=== PATIENT | female | born 1970 | race Hispanic/Latino ===

== ENCOUNTER 2018-09-07 18:02 | Emergency (ER) | payer OTHER ==
--- OUTSIDE RECORDS SUMMARY | 2018-09-07 18:05 | XMS REPORT | Clinical Summary ---
:1970 Author Organization [facility] Address [address] [place] [address] Care Team Providers Name Role Phone Augusta Manrique MD Primary Care Provider Unavailable Allergies Active Allergy Reactions Severity Noted Date Comments Amoxicillin Nausea Only, 10/13/2008 Pt states she is Swelling, Other (See Allergic due to other Comments) medications pt takes. Pt states she is Allergic due to other medications pt takes. Phenytoin Sodium 10/13/2008 Phenytoin Sodium Rash Low 08/11/2014 Raw skin Extended Raw skin Medications Medication Sig Dispensed Refills Start Date End Date Status triamcinolone APPLY TO 0 01/30/2016 Active (KENALOG) 0.1 % AFFECTED AREA cream BID escitalopram TK 1 AND 07/28 3 2017 Active (LEXAPRO) 20 MG TS PO PRN tablet ibuprofen Take 1 tablet 0 01/05/2018 Active (ADVIL,MOTRIN) 600 by mouth every MG tablet 6 (six) hours as needed. ranitidine (ZANTAC) TAKE 1 60 tablet 0 03/09/2018 Active 150 MG tablet TABLET(150 MG) BY MOUTH TWICE DAILY ALPRAZolam (XANAX) TK 1 T PO BID 2 02/11/2018 Active 0.25 MG tablet PRN cholecalciferol, Take 1 capsule 4 capsule 3 03/15/2018 Active vitamin D3, 50,000 (50,000 Units unit capsule total) by mouth once a week. LAMICTAL 100 mg Take 2 tablets 360 tablet 3 03/17/2018 Active tablet (200 mg total) by mouth 2 (two) times a day. ONFI 20 mg tablet TK 1 T PO D 90 tablet 1 03/22/2018 Active 9 zonisamide Take 3 540 capsule 3 05/24/2018 Active (ZONEGRAN) 100 MG capsules (300 9 capsule mg total) by mouth 2 (two) times a day. VIMPAT 200 mg TAKE 1 TABLET 60 tablet 5 08/18/2018 Active tablet BY MOUTH TWICE 9 DAILY risperiDONE Take 1 tablet 1 08/23/2018 Active (RisperDAL) 0.25 MG by mouth tablet nightly as needed. LAMICTAL 100 mg 1 tablet 2 3 12/29/2016 Discontinued tablet (two) times a 8 day. escitalopram Take 5 mg by 0 Discontinued (LEXAPRO) 5 MG mouth daily. 8 tablet zonisamide Take 3 540 capsule 3 01/22/2017 Discontinued (ZONEGRAN) 100 MG capsules (300 8 capsule mg total) by mouth 2 (two) times a day. lacosamide (VIMPAT) Take 1 tablet 60 tablet 5 08/13/2017 200 mg tablet (200 mg total) 8 by mouth 2 (two) times a day for 180 days. cloBAZam (ONFI) 20 Take 1 tablet 30 tablet 5 08/14/2017 mg tablet (20 mg total) 8 by mouth daily for 180 days. ranitidine (ZANTAC) Take 1 tablet 60 tablet 2 01/26/2018 Discontinued 150 MG tablet (150 mg total) 8 by mouth 2 (two) times a day. cholecalciferol, Take 1 capsule 16 capsule 0 01/28/2018 Discontinued vitamin D3, 50,000 (50,000 Units 8 unit capsule total) by mouth once a week. lacosamide (VIMPAT) Take 1 tablet 60 tablet 5 02/16/2018 Discontinued 200 mg tablet (200 mg total) 9 by mouth 2 (two) times a day for 184 days. 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 Encounters Date Type Specialty Care Team Description 09/03/2018 Orders Only Internal Medicine Burton, LLQ pain (Primary Dx) MD Augusta 09/01/2018 Office Visit Internal Medicine [facility], Encounter for general adult medical examination with abnormal findings (Primary Dx); MD Augusta LLQ pain; Acute left-sided low back pain, with sciatica presence unspecified; Seizure disorder (HCC); Weight gain; Hyperlipidemia, unspecified hyperlipidemia type; Diarrhea, unspecified type 09/01/2018 Orders Only Internal Medicine Augusta Manrique MD 08/18/2018 Refill Neurology Srinivasa Castano MD 05/24/2018 Refill Neurology Kev Guerrero RN 03/22/2018 Telephone Neurology Ladi Browne, LUIS F 03/17/2018 Lab Lab Srinivasa Castano MD 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 Office Visit Neurology Srinivasa Castano MD Cryptogenic partial complex epilepsy (Primary Dx) 03/16/2018 Refill Neurology Srinivasa Castano MD 03/15/2018 Office Visit Internal Medicine [place], Amparo fatigue ( Primary Dx); MD Augusta Vitamin D deficiency 03/09/2018 Refill Internal Medicine Augusta Manrique MD 02/19/2018 Refill Neurology Ladi Browne, LUIS F 02/18/2018 Refill Neurology Srinivasa Castano MD 02/17/2018 Refill Neurology Ladi Browne, LUIS F 02/15/2018 Refill Neurology Srinivasa Castano MD 01/28/2018 Orders Only Internal Medicine Augusta Manrique MD 01/26/2018 [facility], Encounter for general adult medical examination with abnormal findings (Primary Dx); MD Augusta Chest wall pain; Seizure disorder; BMI 31.0-31.9,adult; Depression, unspecified depression type; Vitamin D deficiency; Hyperlipidemia, unspecified hyperlipidemia type; Impaired fasting blood sugar 01/25/2018 Telephone Internal Medicine Augusta Manrique MD 01/01/2018 Telephone Internal Medicine Augusta Manrique MD 12/16/2017 Telephone Neurology Mali Alvarado RN 10/01/2017 Office Visit Neurology Srinivasa Castano MD 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 (Primary Dx) after 09/06/2017 Immunizations Name Dates Previously Given Next Due FLUZONE HIGH-DOSE PF 08/15/2012 Influenza Trivalent 05/18/2012, 05/26/2011, 05/29/2010, 05/22/2008, 05/12/2007, 05/27/2006, 05/23/2005 Influenza, Unspecified 05/18/2012, 05/26/2011, 05/29/2010, 05/22/2008, 05/12/2007, 05/27/2006, 05/23/2005 MMR 08/29/2014 Tdap 06/14/2014 Family History Medical History Relation Name Comments Colon cancer Father Dementia Father No Known Problems Mother Relation Name Status Comments Father Alive Mother Alive Social History Tobacco Use Types Packs/Day Years Used Date Never Smoker Smokeless Tobacco: Never Used Alcohol Use Drinks/Week oz/Week Comments No Sex Assigned at Date Recorded Not on file Job Start Date Occupation Industry Not on file Not on file Not on file Travel History Travel Start Travel End No recent travel history available. Last Filed Vital Signs Vital Sign Reading Time Taken Blood Pressure 119/86 09/01/2018 1:01 PM MACHINE SET UP OPERATOR Pulse 74 09/01/2018 1:01 PM MACHINE SET UP OPERATOR Temperature 36.7 C (98 F) 09/01/2018 1:01 PM MACHINE SET UP OPERATOR Respiratory Rate - - Oxygen Saturation 99% 09/01/2018 1:01 PM MACHINE SET UP OPERATOR Inhaled Oxygen Concentration - - Weight 84.8 kg (187 lb) 09/01/2018 1:01 PM MACHINE SET UP OPERATOR Height 157.5 cm (5' 2") 09/01/2018 1:01 PM MACHINE SET UP OPERATOR Body Mass Index 34.2 09/01/2018 1:01 PM MACHINE SET UP OPERATOR Plan of Treatment Date Type Specialty Care Team Description 09/22/2018 Office Visit Neurology Srinivasa Castano MD [address] [place] [address] Health Maintenance Due Date Last Done Comments INFLUENZA VACCINE 02/24/2018 08/15/2012, 05/18/2012, 05/18/2012, Additional history exists CERVICAL CANCER SCREENING 11/12/2020 11/12/2017 Implants Implanted Type Area Mystery Shopper Device Identifier Shelf Expiration Model / Date Serial / Lot Vagal Nerve Stimulator Procedures Procedure Name Priority Date/Time Associated Diagnosis Comments XR LUMBAR SPINE Routine 09/01/2018 1:45 LLQ pain Results for this COMPLETE 4+ VW PM MACHINE SET UP OPERATOR Acute left-sided low procedure are in back pain, with the results sciatica presence section. unspecified Seizure disorder (HCC) SEDIMENTATION RATE Routine 09/01/2018 1:32 LLQ pain Results for this PM MACHINE SET UP OPERATOR Acute left-sided low procedure are in back pain, with the results sciatica presence section. unspecified Seizure disorder (HCC) Weight gain C-REACTIVE PROTEIN Routine 09/01/2018 1:32 LLQ pain Results for this PM MACHINE SET UP OPERATOR Acute left-sided low procedure are in back pain, with the results sciatica presence section. unspecified Seizure disorder (HCC) Weight gain LIPID PANEL Routine 09/01/2018 1:32 Encounter for general Results for this PM MACHINE SET UP OPERATOR adult medical procedure are in examination with the results abnormal findings section. Hyperlipidemia, unspecified hyperlipidemia type THYROID STIMULATING Routine 09/01/2018 1:32 LLQ pain Results for this HORMONE PM MACHINE SET UP OPERATOR Acute left-sided low procedure are in back pain, with the results sciatica presence section. unspecified Seizure disorder (HCC) Encounter for general adult medical examination with abnormal findings Weight gain URINALYSIS, COMPLETE, Routine 09/01/2018 1:32 LLQ pain Results for this WITH REFLEX TO PM MACHINE SET UP OPERATOR Acute left-sided low procedure are in CULTURE back pain, with the results sciatica presence section. unspecified Seizure disorder (HCC) Encounter for general adult medical examination with abnormal findings Weight gain COMPREHENSIVE Routine 09/01/2018 1:32 LLQ pain Results for this METABOLIC PANEL PM MACHINE SET UP OPERATOR Acute left-sided low procedure are in back pain, with the results sciatica presence section. unspecified Seizure disorder (HCC) Encounter for general adult medical examination with abnormal findings Weight gain CBC WITH PLATELET AND Routine 09/01/2018 1:32 LLQ pain Results for this DIFFERENTIAL PM MACHINE SET UP OPERATOR Acute left-sided low procedure are in back pain, with the results sciatica presence section. unspecified Seizure disorder (HCC) Encounter for general adult medical examination with abnormal findings Weight gain URINE CULTURE Routine 09/01/2018 1:32 Results for this PM MACHINE SET UP OPERATOR procedure are in the results section. ZZESTIMATED GFR Routine 03/17/2018 1:54 Results for this PM CDT procedure are in the results section. HC COMPLETE BLD COUNT Routine 03/17/2018 1:54 Cryptogenic partial Results for this W/AUTO DIFF PM CDT complex epilepsy procedure are in the results section. COMPREHENSIVE Routine 03/17/2018 1:54 Cryptogenic partial Results for this METABOLIC PANEL PM CDT complex epilepsy procedure are in the results section. XR CHEST 2 VW Routine 01/26/2018 11:39 Chest wall pain Results for this AM CDT procedure are in the results section. ECG 12-LEAD Routine 01/26/2018 11:34 Chest wall pain Results for this AM CDT procedure are in the results section. VITAMIN D 25 HYDROXY Routine 01/26/2018 11:22 Vitamin D deficiency Results for this LEVEL AM CDT procedure are in the results section. URINALYSIS, COMPLETE, Routine 01/26/2018 11:22 Encounter for general Results for this WITH REFLEX TO AM CDT adult medical procedure are in CULTURE examination with the results abnormal findings section. THYROID STIMULATING Routine 01/26/2018 11:22 Depression, Results for this HORMONE AM CDT unspecified depression procedure are in type the results section. LIPID PANEL Routine 01/26/2018 11:22 Hyperlipidemia, Results for this AM CDT unspecified procedure are in hyperlipidemia type the results section. HEMOGLOBIN A1C Routine 01/26/2018 11:22 Impaired fasting blood Results for this AM CDT sugar procedure are in the results section. COMPREHENSIVE Routine 01/26/2018 11:22 Chest wall pain Results for this METABOLIC PANEL AM CDT procedure are in the results section. CBC WITH PLATELET AND Routine 01/26/2018 11:22 Chest wall pain Results for this DIFFERENTIAL AM CDT procedure are in the results section. after 09/06/2017 Results XR Lumbar Spine Complete 4+ Vw (09/01/2018 1:45 PM MACHINE SET UP OPERATOR) Narrative Performed At EXAMINATION:XR LUMBAR SPINE COMPLETE 4VW [facility] CLINICAL HISTORY:R10.32 Left lower quadrant pain, M54.5 Low back pain, pain COMPARISON:January 27, 2012 IMPRESSION: 5 views of lumbar spine were obtained. 5 nonrib-bearing lumbar type vertebrae. No pars defects on the oblique views. Lumbar spine alignment is within normal limits. Multilevel disc space narrowing and positive changes worst at L5-S1, progressed since last examination. No compression fractures or aggressive bony lesions. [id number] Procedure Note Hm Interface, Radiology Results Incoming - 09/01/2018 3:30 PM MACHINE SET UP OPERATOR EXAMINATION: XR LUMBAR SPINE COMPLETE 4 VW CLINICAL HISTORY: R10.32 Left lower quadrant pain, M54.5 Low back pain, pain COMPARISON: January 27, 2012 IMPRESSION: 5 views of lumbar spine were obtained. 5 nonrib-bearing lumbar type vertebrae. No pars defects on the oblique views. Lumbar spine alignment is within normal limits. Multilevel disc space narrowing and positive changes worst at L5-S1, progressed since last examination. No compression fractures or aggressive bony lesions. [id number] Performing Organization Address City/[facility] Cent[facility] Phone Number [facility] [address] [place] [address] URINALYSIS, COMPLETE, WITH REFLEX TO CULTURE (09/01/2018 1:32 PM MACHINE SET UP OPERATOR)Only the most recent of2 resultswithin the time period is included. Color, UA YELLOW YELLOW [facility] [place] Appearance CLEAR CLEAR [facility] [place] Specific gravity, urine 1.011 1.001 - 1.035 [facility] [place] pH, urine 5.5 5.0 - 8.0 [facility] [place] Glucose, urine NEGATIVE NEGATIVE [facility] [place] Bilirubin, UA NEGATIVE NEGATIVE [facility] [place] Ketones, UA NEGATIVE NEGATIVE [facility] [place] Occult blood, urine NEGATIVE NEGATIVE [facility] [place] Protein, UA NEGATIVE NEGATIVE [facility] [place] Nitrite, UA NEGATIVE NEGATIVE [facility] [place] Leukocyte esterase, UA NEGATIVE NEGATIVE [facility] [place] WBC, UA 6-10 (A) < OR=5 /HPF [facility] [place] RBC, UA 0-2 < OR=2 /HPF [facility] [place] Squamous epithelial 0-5 < OR=5 /HPF [facility] cells, UA [place] Bacteria, UA FEW (A) NONE SEEN /HPF [facility] [place] Hyaline casts, UA NONE SEEN NONE SEEN /LPF [facility] [place] Reflex CULTURE INDICATED - [facility] RESULTS TO FOLLOW [place] Resulting Agency Comment Performing Organization Information: Site ID: [facility] Name: [facility] Address: [address] [place] [phone] Director: Brooke Mondragon Performing Organization Address [facility] Centercova Phone Number [employer] [address] [address] Sedimentation rate (09/01/2018 1:32 PM MACHINE SET UP OPERATOR) Sedimentation rate 6 < OR=20 mm/h [facility] [place] Specimen Blood Resulting Agency Comment Performing Organization Information: Site ID: [facility] Name: [facility] Address: [address] [place] [phone] Director: Brooke Mondragon Performing Organization Address City/State/Zipcode Phone Number [facility] [address] [address] CBC with platelet and differential (09/01/2018 1:32 PM MACHINE SET UP OPERATOR)Only the most recent of3 resultswithin the time period is included. WBC 8.8 3.8 - 10.8 Thousand/uL [facility] RBC 4.05 3.80 - 5.10 Million/uL [facility] HGB 13.2 11.7 - 15.5 g/dL [facility] HCT 40.2 35.0 - 45.0 % [facility] [place] MCV 99.3 80.0 - 100.0 fL [facility] [place] MCH 32.6 27.0 - 33.0 pg [facility] [place] MCHC 32.8 32.0 - 36.0 g/dL [facility] [place] RDW 12.8 11.0 - 15.0 % [facility] [place] Platelet count 354 140 - 400 Thousand/uL [facility] MPV 10.2 7.5 - 12.5 fL [facility] [place] Neutrophils, absolute 6,213 1,500 - 7,800 cells/uL [facility] [place] Lymphocytes, absolute 1,478 850 - 3,900 cells/uL [facility] Monocytes, absolute 977 (H) 200 - 950 cells/uL [facility] Eosinophils, absolute 88 15 - 500 cells/uL [facility] [place] Basophils, absolute 44 0 - 200 cells/uL [facility] Neutrophils 70.6 % [facility] Lymphocytes 16.8 % [facility] Monocytes 11.1 % [facility] Eosinophils 1.0 % [facility] Basophils + RC 0.5 % [facility] Specimen Blood Resulting Agency Comment Performing Organization Information: Site ID: [id number] Name: [facility] Lab Address: [address] [place] [phone] Director: Brooke Mondragon Performing Organization Address City/State/Zipcode Phone Number [facility] [employer] [facility] [address] [address] Urine culture (09/01/2018 1:32 PM MACHINE SET UP OPERATOR) Urine culture SEE NOTE [facility] Comment: CULTURE, URINE, ROUTINE MICRO NUMBER:[id number] TEST STATUS: FINAL SPECIMEN SOURCE: URINE SPECIMEN QUALITY:ADEQUATE RESULT:Multiple organisms present, each less than 10,000 CFU/mL. These organisms, commonly found on external and internal genitalia, are considered to be colonizers. No further testing performed. Resulting Agency Comment Performing Organization Information: Site ID: [facility] Name: [facility] Address: [address] [place] [phone] Director: Brooke Mondragon Performing Organization Address [facility] Phone Number [facility] [place] [address] C-reactive protein (09/01/2018 1:32 PM MACHINE SET UP OPERATOR) CRP 3.3 <8.0 mg/L [facility] [place] Specimen Blood Resulting Agency Comment Performing Organization Information: Site ID: [facility] Name: [facility] Address: [address] [place] [phone] Director: Brooke Mondragon Performing Organization Address [facility] Phone Number [facility] [place] [address] Thyroid stimulating hormone (09/01/2018 1:32 PM MACHINE SET UP OPERATOR)Only the most recent of2 resultswithin the time period is included. TSH 3.36 mIU/L [facility] [place] Comment: Reference Range > or=20 Years0.40-4.50 Ranges First trimester0.26-2.66 Second trimester 0.55-2.73 Third trimester0.43-2.91 Specimen Blood Resulting Agency Comment Performing Organization Information: Site ID: [facility] Name: [facility] Address: [address] [place] [phone] Director: Brooke Mondragon Performing Organization Address [facility] Phone Number [place] [address] Lipid panel (09/01/2018 1:32 PM MACHINE SET UP OPERATOR)Only the most recent of2 resultswithin the time period is included. Cholesterol, total 188 <200 mg/dL [facility] [place] HDL cholesterol 65 >50 mg/dL [facility] [place] Triglycerides 81 <150 mg/dL [facility] [place] LDL cholesterol 106 (H) mg/dL (calc) [facility] calculated Comment: [place] Reference range: <100 Desirable range <100 mg/dL for primary prevention; <70 mg/dL for patients with CHD or diabetic patients with > or=2 CHD risk factors. LDL-C is now calculated using the Jonathan calculation, which is a validated novel method providing better accuracy than the Friedewald equation in the estimation of LDL-C. Troy HERNANDEZ et al. FRANKY. 2013;310(19): 2245-4017 (http://education.[employer]/faq/UDR622) Cholesterol/HDL ratio 2.9 <5.0 (calc) [facility] Non-HDL cholesterol 123 <130 mg/dL [facility] Comment: (calc) [place] For patients with diabetes plus 1 major ASCVD risk factor, treating to a non-HDL-C goal of <100 mg/dL (LDL-C of <70 mg/dL) is considered a therapeutic option. Specimen Blood Resulting Agency Comment Performing Organization Information: Site ID: [id number] Name: [facility] Address: [address] [place] [phone] Director: Brooke Mondragon Performing Organization Address City/State/Zipcode Phone Number [facility] [place] [phone] Comprehensive metabolic panel (09/01/2018 1:32 PM MACHINE SET UP OPERATOR)Only the most recent of3 resultswithin the time period is included. Glucose 58 (L) 65 - 99 mg/dL [facility] Comment: [place] Fasting reference interval BUN, whole blood 4 (L) 7 - 25 mg/dL [facility] Creatinine 0.67 0.50 - 1.10 mg/dL [facility] EGFR Non-Afr. Dominican 106 > OR=60 [facility] mL/min/1.73m2 [place] EGFR 123 > OR=60 [facility] mL/min/1.73m2 [place] BUN/creatinine ratio 6 6 - 22 (calc) [facility] Sodium 139 135 - 146 mmol/L [facility] Potassium 4.0 3.5 - 5.3 mmol/L [facility] [place] Chloride 102 98 - 110 mmol/L [facility] [place] CO2 33 (H) 20 - 32 mmol/L [facility] [place] Calcium 9.5 8.6 - 10.2 mg/dL [facility] Protein 6.6 6.1 - 8.1 g/dL [facility] Albumin, S 3.9 3.6 - 5.1 g/dL [facility] Globulin, total 2.7 1.9 - 3.7 g/dL [facility] (calc) [place] Albumin/globulin ratio 1.4 1.0 - 2.5 (calc) [facility] [place] Total bilirubin 0.5 0.2 - 1.2 mg/dL [facility] [place] Alkaline phosphatase 154 (H) 33 - 115 U/L [facility] AST 30 10 - 35 U/L [facility] ALT 30 (H) 6 - 29 U/L [facility] [place] Specimen Blood Resulting Agency Comment Performing Organization Information: Site ID: [id number] Name: [facility] Address: [address] [place] [phone] Director: Brooke Mondragon Performing Organization Address City/State/Zipcode Phone Number [facility] [address] [place] [phone] Estimated GFR (03/17/2018 1:54 PM CDT) GFR Non Af Amer >90 mL/min/1.73 m2 [facility] DEPARTMENT OF PATHOLOGY AND GENOMIC MEDICINE GFR Af Amer >90 mL/min/1.73 m2 [facility] DEPARTMENT OF Comment: PATHOLOGY AND GENOMIC Chronic kidney disease: <60 mL/min/1.73m2 MEDICINE Kidney failure: <15 mL/min/1.73m2 The estimated GFR is calculated from the IDMS-traceable Modification of Diet in Renal Disease Equation. The accuracy of the calculation is poor when the creatinine is normal. Calculated values >90 mL/min/1.73m2 are not reported. This equation has not been validated in children (<18 years), women, the elderly (>70 years), or ethnic groups other than Caucasians and Americans. Specimen Plasma specimen Performing Organization Address City/State/Zipcode Phone Number [facility] DEPARTMENT OF PATHOLOGY AND [address] [place] [id number] [facility] XR Chest 2 Vw (01/26/2018 11:39 AM CDT) Narrative Performed At EXAMINATION:XR CHEST 2 VW [facility] CLINICAL HISTORY:R07.89 Other chest pain, chest wall pain COMPARISON:December 16, 2015 IMPRESSION: Electronic generator is projected over the left chest. The heart and mediastinum are normal.The lung madera are clear. [facility]-[id number] Procedure Note Interface, Radiology Results Incoming - 01/26/2018 11:46 AM CDT EXAMINATION: XR CHEST 2 VW CLINICAL HISTORY: R07.89 Other chest pain, chest wall pain COMPARISON: December 16, 2015 IMPRESSION: Electronic generator is projected over the left chest. The heart and mediastinum are normal. The lung madera are clear. [facility]-[id number] Performing Organization Address [facility] Phone Number [facility] [address] [place] [address] ECG 12 lead (01/26/2018 11:34 AM CDT) Ventricular rate 62 [facility] Atrial rate 62 [facility] PA interval 162 [facility] QRSD interval 88 [facility] QT interval 440 [facility] QTC interval 446 [facility] P axis 1 49 [facility] QRS axis 1 56 [facility] T wave axis 60 [facility] EKG impression Normal sinus rhythm-Normal ECG-In automated [facility] comparison with ECG of 16-DEC-2015 16:36,-No significant change was found- Performing Organization Address [facility] Phone Number [facility] [address] [place] [address] Vitamin D 25 hydroxy level (01/26/2018 11:22 AM CDT) Vitamin D, 25-hydroxy 7 (L) 30 - 100 ng/mL [facility] Comment: [place] Vitamin D Status 25-OH Vitamin D: Deficiency:<20 ng/mL Insufficiency: 20 - 29 ng/mL Optimal: > or=30 ng/mL For 25-OH Vitamin D testing on patients on D2-supplementation and patients for whom quantitation of D2 and D3 fractions is required, the QuestAssureD(TM) 25-OH VIT D, (D2,D3), LC/MS/MS is recommended: order code 61373 (patients >2yrs). For more information on this test, go to: http://education.[employer]/faq/LOS281 (This link is being provided for informational/educational purposes only.) Specimen Blood Resulting Agency Comment Performing Organization Information: Site ID: [id number] Name: [facility] Address: [address] [place] [id number] Director: Brooke Mondragon Performing Organization Address [facility] Phone Number [facility] [place] [address] [place] [address] Hemoglobin A1c (01/26/2018 11:22 AM CDT) Hemoglobin A1C 5.1 <5.7 % of total Hgb [facility] [place] Comment: For the purpose of screening for the presence of diabetes: <5.7% Consistent with the absence of diabetes 5.7-6.4%Consistent with increased risk for diabetes (prediabetes) > or=6.5%Consistent with diabetes This assay result is consistent with a decreased risk of diabetes. Currently, no consensus exists regarding use of hemoglobin A1c for diagnosis of diabetes in children. According to [place] Diabetes Association (ADA) guidelines, hemoglobin A1c <7.0% represents optimal control in non- diabetic patients. Different metrics may apply to specific patient populations. Standards of Medical Care in Diabetes(ADA). Specimen Blood Resulting Agency Comment Performing Organization Information: Site ID: [id number] Name: [facility] Address: [address] [place] [id number] Director: Brooke Mondragon Performing Organization Address [facility] Phone Number [facility] [place] [address] [place] [address] after 09/06/2017 Insurance Payer Benefit Plan / Group Subscriber ID Type Phone Address MEDICARE MEDICARE PART A AND B xxxxxxxxxxx Medicare [place], [place] MEDICAID MEDICAID xxxxxxxxx Medicaid Advance Directives Patient has advance care planning documents, and code status on file. For more information, please contact:[place] [address] Code Status Date Activated Date Inactivated Comments Full Code 12/17/2015 2:54 PM 12/19/2015 11:02 PM Code Status decision reached by: Patient
--- OUTSIDE RECORDS SUMMARY | 2018-09-07 18:05 | XMS REPORT | Clinical Summary ---
:1970 Author Organization [facility] Address [address] [place] [address] Care Team Providers Name Role Phone Angelica Primary Care Provider Allergies Active Allergy Reactions Severity Noted Date Comments Amoxicillin 12/14/2016 Phenytoin Sodium Extended 12/14/2016 Medications Medication Sig Dispensed Refills Start Date End Date Status lamoTRIgine (LAMICTAL) Take 100 mg by 0 Active 100 MG mouth daily. tabletIndications: bipolar zonisamide (ZONEGRAN) Take 100 mg by 0 Active 100 MG mouth 4 (four) capsuleIndications: times daily. Partial Epilepsy Treatment Adjunct OLANZapine (ZYPREXA) Take 2.5 mg by 0 Active 2.5 MG mouth nightly 2 tabletIndications: tabs once daily . Bipolar Disorder in Remission escitalopram oxalate Take 10 mg by 0 Active (LEXAPRO) 10 MG mouth daily. tabletIndications: Depression associated with Bipolar Disorder lacosamide (VIMPAT) 100 Take 100 mg by 0 Active mg TabIndications: mouth 2 (two) Partial Epilepsy times daily. Treatment Adjunct clobazam (ONFI) 20 mg Take 20 mg by 0 Active TabIndications: mouth 2 (two) epilepsy times daily. Active Problems Problem Noted Date Seizure 05/22/2017 Encephalopathy 05/21/2017 Bipolar 1 disorder, depressed, severe 12/17/2016 Borderline personality disorder 12/17/2016 MSSA (methicillin susceptible Staphylococcus aureus) pneumonia 12/17/2016 Suicide attempt by multiple drug overdose 12/16/2016 Acute respiratory failure with hypoxemia 12/14/2016 Aspiration pneumonia 12/14/2016 Suicide attempt 12/14/2016 Social History Tobacco Use Types Packs/Day Years Used Date Never Assessed Sex Assigned at Date Recorded Not on file Job Start Date Occupation Industry Not on file Not on file Not on file Travel History Travel Start Travel End No recent travel history available. Last Filed Vital Signs Not on file Plan of Treatment Not on file Results Not on fileafter 09/06/2017 Insurance Payer Benefit Plan / Group Subscriber ID Type Phone Address MEDICARE MEDICARE A B xxxxxxxxxx Medicare MEDICAID MEDICAID [facility] xxxxxxxxx Medicaid Advance Directives For more information, please contact:[address] [phone] Code Status Date Activated Date Inactivated Comments Full Code 05/21/2017 1:02 AM 05/27/2017 5:45 PM This code status was determined by: Patient Full Code 12/15/2016 7:05 AM 12/24/2016 6:23 PM This code status was determined by: Other (please list)
--- OUTSIDE RECORDS SUMMARY | 2018-09-07 18:06 | XMS REPORT ---
:1970 Author Organization [facility] Address [address] [place] [address] [address] [place] [address] Care Team Providers Name Role Phone ELSYKIM WALTERYessi LEON Unavailable Unavailable CUATE BLAKELY Unavailable Unavailable Problems This patient has no known problems. Allergies, Adverse Reactions, Alerts This patient has no known allergies or adverse reactions. Medications This patient has no known medications. Results Test Description Test Time Test Comments Text Results Atomic Results Result Comments CORTISOL 2017-05-27 10:03:00 Test Item Value Reference Range Comments CORTISOL, TOTAL (BEAKER) (test dksj=5019) 2.0 ug/dL 3.7-19.4 [id number] 08:33:00 Test Item Value Reference Range Comments MAGNESIUM (BEAKER) (test wmsd=700) 1.6 mg/dL 1.6-2.6 Add onBASIC METABOLIC [id number] 06:36:00 Test Item Value Reference Range Comments SODIUM (BEAKER) (test 142 meq/L 136-145 felz=745) POTASSIUM (BEAKER) (test 3.6 meq/L 3.5-5.1 jtcv=506) CHLORIDE (BEAKER) (test 117 meq/L 98-107 zjmw=968) CO2 (BEAKER) (test 21 meq/L 22-29 ruvd=877) BLOOD UREA NITROGEN 3 mg/dL 7-21 (BEAKER) (test flnc=826) CREATININE (BEAKER) (test 0.65 mg/dL 0.57-1.25 tygm=337) GLUCOSE RANDOM (BEAKER) 90 mg/dL 70-105 (test wmfb=876) CALCIUM (BEAKER) (test 7.9 mg/dL 8.4-10.2 mobh=977) EGFR (BEAKER) (test 99 mL/min/1.73 sq m ESTIMATED GFR IS NOT gpjs=9260) ACCURATE CREATININE CLEARANCE IN PREDICTING GLOMERULAR FILTRATION RATE. ESTIMATED GFR IS NOT APPLICABLE FOR DIALYSIS PATIENTS. CBC W/PLT COUNT & AUTO [id number] 06:02:00 Test Item Value Reference Range Comments WHITE BLOOD CELL COUNT (BEAKER) (test nrwn=324) 6.1 K/ L 3.5-10.5 RED BLOOD CELL COUNT (BEAKER) (test fiia=756) 3.59 M/ L 3.93-5.22 HEMOGLOBIN (BEAKER) (test qzxd=264) 10.3 GM/DL 11.2-15.7 HEMATOCRIT (BEAKER) (test nooh=532) 34.0 % 34.1-44.9 MEAN CORPUSCULAR VOLUME (BEAKER) (test stph=525) 94.7 fL 79.4-94.8 MEAN CORPUSCULAR HEMOGLOBIN (BEAKER) (test 28.7 pg 25.6-32.2 vzue=174) MEAN CORPUSCULAR HEMOGLOBIN CONC (BEAKER) (test 30.3 GM/DL 32.2-35.5 lwck=140) RED CELL DISTRIBUTION WIDTH (BEAKER) (test 15.7 % 11.7-14.4 xmgh=400) PLATELET COUNT (BEAKER) (test pwnf=010) 305 K/CU MM 150-450 MEAN PLATELET VOLUME (BEAKER) (test vuph=904) 10.5 fL 9.4-12.3 NUCLEATED RED BLOOD CELLS (BEAKER) (test 0 /100 WBC 0-0 ehjs=959) NEUTROPHILS RELATIVE PERCENT (BEAKER) (test 50 % cieu=872) LYMPHOCYTES RELATIVE PERCENT (BEAKER) (test 33 % ynqg=500) MONOCYTES RELATIVE PERCENT (BEAKER) (test 12 % rouy=385) EOSINOPHILS RELATIVE PERCENT (BEAKER) (test 4 % dzpt=032) BASOPHILS RELATIVE PERCENT (BEAKER) (test 1 % wchy=823) NEUTROPHILS ABSOLUTE COUNT (BEAKER) (test 3.04 K/ L 1.56-6.13 ypkd=407) LYMPHOCYTES ABSOLUTE COUNT (BEAKER) (test 2.02 K/ L 1.18-3.74 jszc=402) MONOCYTES ABSOLUTE COUNT (BEAKER) (test 0.70 K/ L 0.24-0.36 rebn=488) EOSINOPHILS ABSOLUTE COUNT (BEAKER) (test 0.24 K/ L 0.04-0.36 dmjw=017) BASOPHILS ABSOLUTE COUNT (BEAKER) (test 0.05 K/ L 0.01-0.08 hvtw=522) IMMATURE GRANULOCYTES-RELATIVE PERCENT (BEAKER) 1 % 0-1 (test xhtg=5194) [id number] 21:10:00 Test Item Value Reference Range Comments POTASSIUM (BEAKER) (test pzsn=372) 3.1 meq/L 3.5-5.1 BLOOD [id number] 12:00:00 Test Item Value Reference Range Comments CULTURE (BEAKER) (test dymk=8196) No growth in 5 days CBC W/PLT COUNT & AUTO [id number] 09:04:00 Test Item Value Reference Range Comments WHITE BLOOD CELL COUNT (BEAKER) (test urnh=041) 6.8 K/ L 3.5-10.5 RED BLOOD CELL COUNT (BEAKER) (test whgb=953) 3.51 M/ L 3.93-5.22 HEMOGLOBIN (BEAKER) (test emvz=042) 10.1 GM/DL 11.2-15.7 HEMATOCRIT (BEAKER) (test ulcg=029) 33.0 % 34.1-44.9 MEAN CORPUSCULAR VOLUME (BEAKER) (test bkep=997) 94.0 fL 79.4-94.8 MEAN CORPUSCULAR HEMOGLOBIN (BEAKER) (test 28.8 pg 25.6-32.2 qcid=269) MEAN CORPUSCULAR HEMOGLOBIN CONC (BEAKER) (test 30.6 GM/DL 32.2-35.5 yqhd=992) RED CELL DISTRIBUTION WIDTH (BEAKER) (test 15.5 % 11.7-14.4 hwpp=796) PLATELET COUNT (BEAKER) (test ngwx=064) 307 K/CU MM 150-450 MEAN PLATELET VOLUME (BEAKER) (test kdav=281) 10.4 fL 9.4-12.3 NUCLEATED RED BLOOD CELLS (BEAKER) (test 0 /100 WBC 0-0 izvd=382) NEUTROPHILS RELATIVE PERCENT (BEAKER) (test 54 % ybux=218) LYMPHOCYTES RELATIVE PERCENT (BEAKER) (test 33 % xlrl=080) MONOCYTES RELATIVE PERCENT (BEAKER) (test 10 % pten=689) EOSINOPHILS RELATIVE PERCENT (BEAKER) (test 3 % bkkz=224) BASOPHILS RELATIVE PERCENT (BEAKER) (test 1 % bppe=672) NEUTROPHILS ABSOLUTE COUNT (BEAKER) (test 3.63 K/ L 1.56-6.13 zhzl=411) LYMPHOCYTES ABSOLUTE COUNT (BEAKER) (test 2.21 K/ L 1.18-3.74 rmmm=532) MONOCYTES ABSOLUTE COUNT (BEAKER) (test 0.64 K/ L 0.24-0.36 vvew=493) EOSINOPHILS ABSOLUTE COUNT (BEAKER) (test 0.22 K/ L 0.04-0.36 wqib=170) BASOPHILS ABSOLUTE COUNT (BEAKER) (test 0.05 K/ L 0.01-0.08 wbuk=205) IMMATURE GRANULOCYTES-RELATIVE PERCENT (BEAKER) 0 % 0-1 (test vgtc=7680) BASIC METABOLIC [id number] 06:35:00 Test Item Value Reference Range Comments SODIUM (BEAKER) (test 143 meq/L 136-145 eavp=801) POTASSIUM (BEAKER) (test 3.0 meq/L 3.5-5.1 btxx=625) CHLORIDE (BEAKER) (test 114 meq/L 98-107 isze=431) CO2 (BEAKER) (test 22 meq/L 22-29 itgv=811) BLOOD UREA NITROGEN 4 mg/dL 7-21 (BEAKER) (test xtrh=818) CREATININE (BEAKER) (test 0.57 mg/dL 0.57-1.25 bkye=759) GLUCOSE RANDOM (BEAKER) 106 mg/dL 70-105 (test ddvj=791) CALCIUM (BEAKER) (test 8.2 mg/dL 8.4-10.2 kwsr=237) EGFR (BEAKER) (test 115 mL/min/1.73 sq m ESTIMATED GFR IS NOT wqit=6416) ACCURATE CREATININE CLEARANCE IN PREDICTING GLOMERULAR FILTRATION RATE. ESTIMATED GFR IS NOT APPLICABLE FOR DIALYSIS PATIENTS. CORTISOL,60 [id number] 21:54:00 Test Item Value Reference Range Comments CORTISOL BASELINE NETWORKED (BEAKER) (test 5.5 mcg/dL ffuk=6562) CORTISOL 30 MINUTE NETWORKED (BEAKER) (test 17.0 mcg/dL wkhq=3459) CORTISOL, 60 MINUTE (BEAKER) (test cyuh=9906) 19.5 ug/dL ACTH STIMULATION TEST INTERPRETATION GUIDELINES(Synonyms: Cortrosyn Test, Cosyntropin or Corticotropin Stimulation Test)Adenocorticotropic hormone (ACTH) is a tropic hormone, made in the pituitary gland, which travels trhough the bloodstream and stimulates the cortex of the adrenal glands to release cortisol. Cortisol is a primary hormone, which aids the body's metabolism of fats, carbohydrates, and protein as well as sodium and potassium regulation.ACTH Stimulation Test: Exogenous administrationof biologically active ACTH stimulates the secretion of cortisol from the adrenal gland. This test is used to evaluate adrenal function by measuring cortisol levels at baseline and at 30 and 60 minutesafter the administration of 250 micrograms of cosyntropin (Cortrosyn). Patients who have received exogenous corticosteroids immediately prior to performing the ACTH Stimulation Test will often have elevated baseline cortisol levels, which may lead to erroneous interpretation of test results. The notable exception is with dexamethasone.Normal Response: An increase in cortisol after stimulation by ACTHis normal. Post-stimulation cortisol concentration should be greater than 20 mcg/dL or the rate of rise from baseline cortisol should be greater than or equal to 9 mcg/dL.Patients with sepsis or septicshock: According to a study by Pamela et al (FRANKY 2000,283( 8):1038-45), the ACTH Stimulation Test provides important prognostic information. This study defined 3 groups of patients with sepsis or septic shock : 1. Good Survival: Low basal cortisol (<or=34 mcg/dL) and high ACTH response (>9mcg/dL) 2. Intermediate Survival: Low basal cortisol (< 34 mcg/dL) and low response to ACTH (<or=9 mcg/dL) OR High basal cortisol (>34 mcg/dL) or high ACTH response (>9 mcg/dL) 3.Poor Survival: High basal cortisol (>34 mcg/dL) and low ACTH response (<or=9 mcg/dL) .Treatment of patients with relative adrenal dysfunction may be indicated based on test results and the clinical condition of the patient. Additional information, including treatment recommendations, is available in critically ill patients, approved by the Pharmacy, Nutrition, and Therapeutics Committee on 07/05/2004 and available through the Pharmacy Policy and Procedure Section on The Source.Do not run this test if systemic hydrocortisone, methylprednisolone, prednisolone or prednisone has been administered within the past 24 hours. Draw baseline cortisol level just prior to cosyntropin administration. Administer cosyntropin 0.25 mg diluted in 2-5 mL of normal saline slow IV Push over a period of 2 minutes. Draw serum cortisol level 30 minutes after cosyntropin administration. Draw serum cortisollevel 60 minutes after cosyntropin administration.CORTISOL,30 [id number] 21:47:00 Test Item Value Reference Range Comments CORTISOL BASELINE NETWORKED (BEAKER) (test 5.5 mcg/dL nicg=4620) CORTISOL, 30 MINUTE (BEAKER) (test tbjv=0070) 17.0 ug/dL ACTH STIMULATION TEST INTERPRETATION GUIDELINES(Synonyms: Cortrosyn Test, Cosyntropin or Corticotropin Stimulation Test)Adenocorticotropic hormone (ACTH) is a tropic hormone, made in the pituitary gland, which travels trhough the bloodstream and stimulates the cortex of the adrenal glands to release cortisol. Cortisol is a primary hormone, which aids the body's metabolism of fats, carbohydrates, and protein as well as sodium and potassium regulation.ACTH Stimulation Test: Exogenous administrationof biologically active ACTH stimulates the secretion of cortisol from the adrenal gland. This test is used to evaluate adrenal function by measuring cortisol levels at baseline and at 30 and 60 minutesafter the administration of 250 micrograms of cosyntropin (Cortrosyn). Patients who have received exogenous corticosteroids immediately prior to performing the ACTH Stimulation Test will often have elevated baseline cortisol levels, which may lead to erroneous interpretation of test results. The notable exception is with dexamethasone.Normal Response: An increase in cortisol after stimulation by ACTHis normal. Post-stimulation cortisol concentration should be greater than 20 mcg/dL or the rate of rise from baseline cortisol should be greater than or equal to 9 mcg/dL.Patients with sepsis or septicshock: According to a study by Pamela et al (FRANKY 2000,283( 8):1038-45), the ACTH Stimulation Test provides important prognostic information. This study defined 3 groups of patients with sepsis or septic shock : 1. Good Survival: Low basal cortisol (<or=34 mcg/dL) and high ACTH response (>9mcg/dL) 2. Intermediate Survival: Low basal cortisol (< 34 mcg/dL) and low response to ACTH (<or=9 mcg/dL) OR High basal cortisol (>34 mcg/dL) or high ACTH response (>9 mcg/dL) 3.Poor Survival: High basal cortisol (>34 mcg/dL) and low ACTH response (<or=9 mcg/dL) .Treatment of patients with relative adrenal dysfunction may be indicated based on test results and the clinical condition of the patient. Additional information, including treatment recommendations, is available in critically ill patients, approved by the Pharmacy, Nutrition, and Therapeutics Committee on 07/05/2004 and available through the Pharmacy Policy and Procedure Section on The Source.Do not run this test if systemic hydrocortisone, methylprednisolone, prednisolone or prednisone has been administered within the past 24 hours. Draw baseline cortisol level just prior to cosyntropin administration. Administer cosyntropin 0.25 mg diluted in 2-5 mL of normal saline slow IV Push over a period of 2 minutes. Draw serum cortisol level 30 minutes after cosyntropin administration. Draw serum cortisollevel 60 minutes after cosyntropin administration.[id number] 21:33:00 Test Item Value Reference Range Comments CORTISOL, TOTAL (BEAKER) (test tubg=1046) 16.2 ug/dL 3.7-19.4 30 [id number] 20:54:00 Test Item Value Reference Range Comments CORTISOL, TOTAL (BEAKER) (test fdeq=7151) 5.5 ug/dL 3.7-19.4 BaselineCORTISOL,[id number] 20:54:00 Test Item Value Reference Range Comments CORTISOL, BASELINE (BEAKER) (test xtdg=6326) 5.5 ug/dL ACTH STIMULATION TEST INTERPRETATION GUIDELINES(Synonyms: Cortrosyn Test, Cosyntropin or Corticotropin Stimulation Test)Adenocorticotropic hormone (ACTH) is a tropic hormone, made in the pituitary gland, which travels trhough the bloodstream and stimulates the cortex of the adrenal glands to release cortisol. Cortisol is a primary hormone, which aids the body's metabolism of fats, carbohydrates, and protein as well as sodium and potassium regulation.ACTH Stimulation Test: Exogenous administrationof biologically active ACTH stimulates the secretion of cortisol from the adrenal gland. This test is used to evaluate adrenal function by measuring cortisol levels at baseline and at 30 and 60 minutesafter the administration of 250 micrograms of cosyntropin (Cortrosyn). Patients who have received exogenous corticosteroids immediately prior to performing the ACTH Stimulation Test will often have elevated baseline cortisol levels, which may lead to erroneous interpretation of test results. The notable exception is with dexamethasone.Normal Response: An increase in cortisol after stimulation by ACTHis normal. Post-stimulation cortisol concentration should be greater than 20 mcg/dL or the rate of rise from baseline cortisol should be greater than or equal to 9 mcg/dL.Patients with sepsis or septicshock: According to a study by Pamela et al (FRANKY 2000,283( 8):1038-45), the ACTH Stimulation Test provides important prognostic information. This study defined 3 groups of patients with sepsis or septic shock : 1. Good Survival: Low basal cortisol (<or=34 mcg/dL) and high ACTH response (>9mcg/dL) 2. Intermediate Survival: Low basal cortisol (< 34 mcg/dL) and low response to ACTH (<or=9 mcg/dL) OR High basal cortisol (>34 mcg/dL) or high ACTH response (>9 mcg/dL) 3.Poor Survival: High basal cortisol (>34 mcg/dL) and low ACTH response (<or=9 mcg/dL) .Treatment of patients with relative adrenal dysfunction may be indicated based on test results and the clinical condition of the patient. Additional information, including treatment recommendations, is available in critically ill patients, approved by the Pharmacy, Nutrition, and Therapeutics Committee on 07/05/2004 and available through the Pharmacy Policy and Procedure Section on The Source.Do not run this test if systemic hydrocortisone, methylprednisolone, prednisolone or prednisone has been administered within the past 24 hours. Draw baseline cortisol level just prior to cosyntropin administration. Administer cosyntropin 0.25 mg diluted in 2-5 mL of normal saline slow IV Push over a period of 2 minutes. Draw serum cortisol level 30 minutes after cosyntropin administration. Draw serum cortisollevel 60 minutes after cosyntropin administration.PUL PERF IMAGING, [facility], [id number] 14:11: 00FINAL REPORT PROCEDURE: V/Q LUNG SCAN CPT CODE: 40843 INDICATION: Dyspnea, cardiac origin suspected PROTOCOL: 10.8 mCi of Xe-133 gas was administered by inhalation. Single breath and rebreathing/washout images were obtained in the anterior and the posterior projections. 4.3 mCi of Tc-99m MAA was then injected intravenously, and static perfusion images were obtained in multiple projections. FINDINGS: Ventilation : Initial tracer distribution is physiological. Washout proceeds normally. Perfusion: Tracer distribution is physiological. IMPRESSION : Normal Study 1. No evidence of pulmonary embolization. Signed: Tricia Parrish MDReport Verified Date/Time: 05/25/2017 14:11:28 Reading Location: [address] Reading Room TSH/FREE T4 IF [id number] 04:52:00 Test Item Value Reference Range Comments THYROID STIMULATING HORMONE (BEAKER) (test 2.92 uIU/mL 0.35-4.94 szcy=085) [id number] 04:19:00 Test Item Value Reference Range Comments CORTISOL, TOTAL (BEAKER) (test hcbp=3849) 1.2 ug/dL 3.7-19.4 BASIC METABOLIC [id number] 04:08:00 Test Item Value Reference Range Comments SODIUM (BEAKER) (test 140 meq/L 136-145 qiuk=486) POTASSIUM (BEAKER) (test 3.5 meq/L 3.5-5.1 tkiu=085) CHLORIDE (BEAKER) (test 115 meq/L 98-107 jczv=873) CO2 (BEAKER) (test 22 meq/L 22-29 xdtf=557) BLOOD UREA NITROGEN 3 mg/dL 7-21 (BEAKER) (test twjh=926) CREATININE (BEAKER) (test 0.57 mg/dL 0.57-1.25 xxtf=611) GLUCOSE RANDOM (BEAKER) 101 mg/dL 70-105 (test ehpj=900) CALCIUM (BEAKER) (test 7.9 mg/dL 8.4-10.2 tzzh=134) EGFR (BEAKER) (test 115 mL/min/1.73 sq m ESTIMATED GFR IS NOT uzwj=2566) ACCURATE CREATININE CLEARANCE IN PREDICTING GLOMERULAR FILTRATION RATE. ESTIMATED GFR IS NOT APPLICABLE FOR DIALYSIS PATIENTS. CBC W/PLT COUNT & AUTO [id number] 03:26:00 Test Item Value Reference Range Comments WHITE BLOOD CELL COUNT (BEAKER) (test jiya=872) 6.7 K/ L 3.5-10.5 RED BLOOD CELL COUNT (BEAKER) (test ycas=181) 3.44 M/ L 3.93-5.22 HEMOGLOBIN (BEAKER) (test mufs=353) 9.9 GM/DL 11.2-15.7 HEMATOCRIT (BEAKER) (test tsww=965) 32.5 % 34.1-44.9 MEAN CORPUSCULAR VOLUME (BEAKER) (test aaiw=823) 94.5 fL 79.4-94.8 MEAN CORPUSCULAR HEMOGLOBIN (BEAKER) (test 28.8 pg 25.6-32.2 iekx=902) MEAN CORPUSCULAR HEMOGLOBIN CONC (BEAKER) (test 30.5 GM/DL 32.2-35.5 jwkz=575) RED CELL DISTRIBUTION WIDTH (BEAKER) (test 15.1 % 11.7-14.4 vuqv=268) PLATELET COUNT (BEAKER) (test jlro=385) 298 K/CU MM 150-450 MEAN PLATELET VOLUME (BEAKER) (test vrzc=140) 10.0 fL 9.4-12.3 NUCLEATED RED BLOOD CELLS (BEAKER) (test 0 /100 WBC 0-0 lvcv=657) NEUTROPHILS RELATIVE PERCENT (BEAKER) (test 57 % lkda=736) LYMPHOCYTES RELATIVE PERCENT (BEAKER) (test 31 % fxsa=760) MONOCYTES RELATIVE PERCENT (BEAKER) (test 10 % kahz=512) EOSINOPHILS RELATIVE PERCENT (BEAKER) (test 2 % znas=451) BASOPHILS RELATIVE PERCENT (BEAKER) (test 1 % vgbb=017) NEUTROPHILS ABSOLUTE COUNT (BEAKER) (test 3.79 K/ L 1.56-6.13 vcev=694) LYMPHOCYTES ABSOLUTE COUNT (BEAKER) (test 2.04 K/ L 1.18-3.74 olvm=028) MONOCYTES ABSOLUTE COUNT (BEAKER) (test 0.65 K/ L 0.24-0.36 kqfc=947) EOSINOPHILS ABSOLUTE COUNT (BEAKER) (test 0.15 K/ L 0.04-0.36 vlqa=943) BASOPHILS ABSOLUTE COUNT (BEAKER) (test 0.04 K/ L 0.01-0.08 bnxt=065) IMMATURE GRANULOCYTES-RELATIVE PERCENT (BEAKER) 0 % 0-1 (test zacp=8628) SPUTUM CULTURE + GRAM [id number] 13:23:00 Test Item Value Reference Range Comments CULTURE (BEAKER) (test See comment meqp=2998) Clindamycin (test code=10) Erythromycin (test code=4) Linezolid (test code=40) Nitrofurantoin (test code=23) Oxacillin (test code=14) Rifampin (test code=43) Tetracycline (test code=2) Trimethoprim + Sulfamethoxazole (test code=47) Vancomycin (test code=13) CULTURE (BEAKER) (test <1+ Staphylococcus ckkr=8822) aureus GRAM STAIN RESULT (BEAKER) 2+ WBCs (test vbki=9412) GRAM STAIN RESULT (BEAKER) 0-5 epithelial cells (test pjxq=450640) GRAM STAIN RESULT (BEAKER) <1+ gram positive (test ieaa=484864) rods GRAM STAIN RESULT (BEAKER) <1+ gram positive (test auoq=751315) cocci in pairs 1+ Normal respiratory sarah presentRAD, CHEST, 1 VIEW, NON [id number] 09:19: 00Reason for exam:->dypneaShould this be performed at the bedside?-> YesFINAL REPORT Chest, one view. HISTORY: Dyspnea COMPARISON: 05/21/2017 IMPRESSION: Interval increase in interstitial edema and central venous congestion. Unchanged enlargement ofthe cardiomediastinal silhouette. Right-sided vascular catheter unchanged in position. No identifiable pneumothorax. No enlarging pleural effusion. Surgical clips in the right upper quadrant. No acute osseous abnormality. Signed: Gordon Harris MDReport Verified Date/Time: 05/24/2017 09:19:06 Reading Location: [facility] C013Y CT Body Reading Room BASIC METABOLIC [id number] 05:17:00 Test Item Value Reference Range Comments SODIUM (BEAKER) (test 138 meq/L 136-145 lbts=110) POTASSIUM (BEAKER) (test 3.8 meq/L 3.5-5.1 ydem=571) CHLORIDE (BEAKER) (test 111 meq/L 98-107 rtsf=389) CO2 (BEAKER) (test 20 meq/L 22-29 ueou=452) BLOOD UREA NITROGEN 5 mg/dL 7-21 (BEAKER) (test mgge=550) CREATININE (BEAKER) (test 0.58 mg/dL 0.57-1.25 fgjn=747) GLUCOSE RANDOM (BEAKER) 80 mg/dL 70-105 (test umuc=048) CALCIUM (BEAKER) (test 8.2 mg/dL 8.4-10.2 buir=904) EGFR (BEAKER) (test 113 mL/min/1.73 sq m ESTIMATED GFR IS NOT ocdv=2471) ACCURATE CREATININE CLEARANCE IN PREDICTING GLOMERULAR FILTRATION RATE. ESTIMATED GFR IS NOT APPLICABLE FOR DIALYSIS PATIENTS. SCREEN, [id number] 11:59:00 Test Item Value Reference Range Comments TEST URINE (BEAKER) (test bawd=142) Negative URINE [id number] 11:10:00 Test Item Value Reference Range Comments CULTURE (BEAKER) (test xutv=1413) No growth TROPONIN [id number] 03:35:00 Test Item Value Reference Range Comments TROPONIN I (BEAKER) (test fdhm=516) < ng/mL 0.00-0.03 Troponin I (TnI) levels must be interpreted in the context of the presenting symptoms and the clinical findings. Elevated TnI levels indicate myocardial damage, but are not specific for ischemic heart disease. Elevated TnI levels are seen in patients with other cardiac conditions (including myocarditis and congestive heart failure), and slight TnI elevations occur in patients with other conditions, including sepsis, renal failure, acidosis, acute neurological disease, and persistent tachyarrhythmia.BASIC METABOLIC [id number] 03:25:00 Test Item Value Reference Range Comments SODIUM (BEAKER) (test 138 meq/L 136-145 qpqa=819) POTASSIUM (BEAKER) (test 3.8 meq/L 3.5-5.1 djbh=800) CHLORIDE (BEAKER) (test 111 meq/L 98-107 hjhw=054) CO2 (BEAKER) (test 19 meq/L 22-29 xtvj=200) BLOOD UREA NITROGEN 5 mg/dL 7-21 (BEAKER) (test eqbo=478) CREATININE (BEAKER) (test 0.58 mg/dL 0.57-1.25 flez=690) GLUCOSE RANDOM (BEAKER) 94 mg/dL 70-105 (test xmga=326) CALCIUM (BEAKER) (test 8.1 mg/dL 8.4-10.2 hajr=658) EGFR (BEAKER) (test 113 mL/min/1.73 sq m ESTIMATED GFR IS NOT lakm=9308) ACCURATE CREATININE CLEARANCE IN PREDICTING GLOMERULAR FILTRATION RATE. ESTIMATED GFR IS NOT APPLICABLE FOR DIALYSIS PATIENTS. CBC W/PLT COUNT & AUTO [id number] 03:10:00 Test Item Value Reference Range Comments WHITE BLOOD CELL COUNT (BEAKER) (test iswr=573) 10.4 K/ L 3.5-10.5 RED BLOOD CELL COUNT (BEAKER) (test iqyr=073) 3.84 M/ L 3.93-5.22 HEMOGLOBIN (BEAKER) (test jraq=629) 10.9 GM/DL 11.2-15.7 HEMATOCRIT (BEAKER) (test oogs=697) 36.5 % 34.1-44.9 MEAN CORPUSCULAR VOLUME (BEAKER) (test ebyw=064) 95.1 fL 79.4-94.8 MEAN CORPUSCULAR HEMOGLOBIN (BEAKER) (test 28.4 pg 25.6-32.2 gwdt=460) MEAN CORPUSCULAR HEMOGLOBIN CONC (BEAKER) (test 29.9 GM/DL 32.2-35.5 vqce=469) RED CELL DISTRIBUTION WIDTH (BEAKER) (test 14.7 % 11.7-14.4 orni=605) PLATELET COUNT (BEAKER) (test bdic=556) 312 K/CU MM 150-450 MEAN PLATELET VOLUME (BEAKER) (test kwsg=973) 10.3 fL 9.4-12.3 NUCLEATED RED BLOOD CELLS (BEAKER) (test 0 /100 WBC 0-0 fsrg=916) NEUTROPHILS RELATIVE PERCENT (BEAKER) (test 81 % qoot=775) LYMPHOCYTES RELATIVE PERCENT (BEAKER) (test 11 % hddy=311) MONOCYTES RELATIVE PERCENT (BEAKER) (test 7 % hsvj=253) EOSINOPHILS RELATIVE PERCENT (BEAKER) (test 1 % wokk=138) BASOPHILS RELATIVE PERCENT (BEAKER) (test 0 % jnan=062) NEUTROPHILS ABSOLUTE COUNT (BEAKER) (test 8.33 K/ L 1.56-6.13 pfrj=639) LYMPHOCYTES ABSOLUTE COUNT (BEAKER) (test 1.10 K/ L 1.18-3.74 uocx=708) MONOCYTES ABSOLUTE COUNT (BEAKER) (test 0.76 K/ L 0.24-0.36 jbpp=261) EOSINOPHILS ABSOLUTE COUNT (BEAKER) (test 0.08 K/ L 0.04-0.36 ccgv=313) BASOPHILS ABSOLUTE COUNT (BEAKER) (test 0.04 K/ L 0.01-0.08 yzcq=487) IMMATURE GRANULOCYTES-RELATIVE PERCENT (BEAKER) 0 % 0-1 (test chkk=2448) TROPONIN [id number] 00:15:00 Test Item Value Reference Range Comments TROPONIN I (BEAKER) (test vnem=225) < ng/mL 0.00-0.03 Troponin I (TnI) levels must be interpreted in the context of the presenting symptoms and the clinical findings. Elevated TnI levels indicate myocardial damage, but are not specific for ischemic heart disease. Elevated TnI levels are seen in patients with other cardiac conditions (including myocarditis and congestive heart failure), and slight TnI elevations occur in patients with other conditions, including sepsis, renal failure, acidosis, acute neurological disease, and persistent tachyarrhythmia.TROPONIN [id number] 18:29:00 Test Item Value Reference Range Comments TROPONIN I (BEAKER) (test rivt=333) < ng/mL 0.00-0.03 Troponin I (TnI) levels must be interpreted in the context of the presenting symptoms and the clinical findings. Elevated TnI levels indicate myocardial damage, but are not specific for ischemic heart disease. Elevated TnI levels are seen in patients with other cardiac conditions (including myocarditis and congestive heart failure), and slight TnI elevations occur in patients with other conditions, including sepsis, renal failure, acidosis, acute neurological disease, and persistent tachyarrhythmia.[id number] 18:14:00 Test Item Value Reference Range Comments D-DIMER QUANTITATIVE (BEAKER) (test zmiu=235) 0.69 MG/L FEU <0.50 Intended Use: The D-Dimer Assay can be used to aid in the diagnosis of Deep Vein Thrombosis (DVT) and Pulmonary Embolism Disease (PED).In patients with low pre-test probability, various studies concerning STA Liatest D-dimer test have reported that with a cutoff value of 0.50 MG/L FEU, the Negative Predictive Value (NPV) regarding the exclusion of thrombosis is within 95-100% range.BASIC METABOLIC [id number] 03:16:00 Test Item Value Reference Range Comments SODIUM (BEAKER) (test 141 meq/L 136-145 ccio=156) POTASSIUM (BEAKER) (test 3.6 meq/L 3.5-5.1 dxog=625) CHLORIDE (BEAKER) (test 114 meq/L 98-107 xqlj=631) CO2 (BEAKER) (test 21 meq/L 22-29 zsif=324) BLOOD UREA NITROGEN 4 mg/dL 7-21 (BEAKER) (test dhjc=347) CREATININE (BEAKER) (test 0.58 mg/dL 0.57-1.25 pish=117) GLUCOSE RANDOM (BEAKER) 92 mg/dL 70-105 (test nqbg=699) CALCIUM (BEAKER) (test 8.1 mg/dL 8.4-10.2 qous=077) EGFR (BEAKER) (test 113 mL/min/1.73 sq m ESTIMATED GFR IS NOT ebdq=7319) ACCURATE CREATININE CLEARANCE IN PREDICTING GLOMERULAR FILTRATION RATE. ESTIMATED GFR IS NOT APPLICABLE FOR DIALYSIS PATIENTS. VANCOMYCIN LEVEL, [id number] 03:11:00 Test Item Value Reference Range Comments VANCOMYCIN TROUGH (BEAKER) (test vvbw=492) 14.6 ug/mL 10.0-20.0 Draw 30 min prior to scheduled dose, HOLD if level > 20 mcg/mL, inform .CBC W/PLT COUNT & AUTO [id number] 03:02:00 Test Item Value Reference Range Comments WHITE BLOOD CELL COUNT (BEAKER) (test uchi=771) 12.2 K/ L 3.5-10.5 RED BLOOD CELL COUNT (BEAKER) (test qtqw=464) 3.81 M/ L 3.93-5.22 HEMOGLOBIN (BEAKER) (test xbaf=125) 11.0 GM/DL 11.2-15.7 HEMATOCRIT (BEAKER) (test mklj=607) 36.0 % 34.1-44.9 MEAN CORPUSCULAR VOLUME (BEAKER) (test qhag=481) 94.5 fL 79.4-94.8 MEAN CORPUSCULAR HEMOGLOBIN (BEAKER) (test 28.9 pg 25.6-32.2 xsph=860) MEAN CORPUSCULAR HEMOGLOBIN CONC (BEAKER) (test 30.6 GM/DL 32.2-35.5 wmxl=438) RED CELL DISTRIBUTION WIDTH (BEAKER) (test 14.7 % 11.7-14.4 yyyi=819) PLATELET COUNT (BEAKER) (test sotk=054) 303 K/CU MM 150-450 MEAN PLATELET VOLUME (BEAKER) (test zhdu=936) 10.3 fL 9.4-12.3 NUCLEATED RED BLOOD CELLS (BEAKER) (test 0 /100 WBC 0-0 dhpw=664) NEUTROPHILS RELATIVE PERCENT (BEAKER) (test 71 % wcen=255) LYMPHOCYTES RELATIVE PERCENT (BEAKER) (test 17 % ullz=149) MONOCYTES RELATIVE PERCENT (BEAKER) (test 10 % gfug=572) EOSINOPHILS RELATIVE PERCENT (BEAKER) (test 1 % ysru=769) BASOPHILS RELATIVE PERCENT (BEAKER) (test 0 % zdct=239) NEUTROPHILS ABSOLUTE COUNT (BEAKER) (test 8.62 K/ L 1.56-6.13 wqvw=262) LYMPHOCYTES ABSOLUTE COUNT (BEAKER) (test 2.09 K/ L 1.18-3.74 obta=733) MONOCYTES ABSOLUTE COUNT (BEAKER) (test 1.27 K/ L 0.24-0.36 hqai=406) EOSINOPHILS ABSOLUTE COUNT (BEAKER) (test 0.14 K/ L 0.04-0.36 oocq=385) BASOPHILS ABSOLUTE COUNT (BEAKER) (test 0.05 K/ L 0.01-0.08 ktwe=009) IMMATURE GRANULOCYTES-RELATIVE PERCENT (BEAKER) 0 % 0-1 (test qxqy=0546) RAD, ABDOMEN/KUB, 1 VIEW [id number] 15:59:00Reason for exam:->corpak placement Should this be performed at the bedside?->YesFINAL REPORT TECHNIQUE: Supine radiograph of the abdomen dated 05/21/2017. HISTORY: Corpak placement. COMPARISON: Abdominal radiograph performed earlier the same day. IMPRESSION:Enteric tube has been advanced and the tip is either in the first portion of the duodenum or in the gastric antrum/pylorus. No air- filled, dilated loops of bowel to suggest obstruction. No free intraperitoneal air. No abnormal soft tissue mass or calcification. Surgical clips are seen in the right upper quadrant. Bones are unremarkable. Signed: [facility] Verified Date/Time: 05/21/2017 15:59:07 Reading Location: [facility] Radiology Reading Room EEG AWAKE AND [id number] 15:48:00DATE OF EE2016DATE OF REPORT: [id number]: [id number]: [id number] time: 14:42Stop time: 15:04ICD-10: R56.9 CPT Code: 45073 HISTORY: 46 y.o. female with history of MDD, epilepsy, and multiple suicide attempt history who is transferred from [facility] for concerns of AMS and potentially status epilepticus.MEDICATIONS THAT COULD AFFECT EEG: Onfi, Vimpat, lamotrigine, zonogram TECHNICAL SUMMARY:This is a digital EEG recorded with 32 input channels on a Wi-Chi system and then reviewed with bipolar and referential montages using the modified combinatorial system nomenclature. DESCRIPTION OF RECORD: During the maximally stimulated state, a sporadic, moderate amplitude occipital dominant rhythm of 7 Hz activity is evident bilaterally. More anteriorly, similar as well as faster frequency distributions occur. The awake background is further admixed with large amounts of 5-7 Hz theta activitiesHV: Hyperventilation was not performed.PHOTIC STIMULATION: Photic Stimulation was not done. IMPRESSION: Abnormal EEG due to 1- Continuous , generalized , theta slowing, reactiveCLINICAL CORRELATION: Diffuse slowing as in this record supports an underlying mild to moderate encephalopathy. An EEG without epileptiform discharges does not exclude the possibility of epilepsy. If the clinical suspicion of epilepsy remains, consider additional EEG recordings. Compared with EEG on 11/2016 this recording show no significant changes. Alberto Herrmann MDNeurophysiology Fellow PGY5 Attending note:I personally reviewed this EEG in its entirety and I agree with the details of this report. Annia Markham MD , PhDEpilepsy Attending RAD, ABDOMEN/KUB, 1 VIEW [id number] 15:19:00Reason for exam:->corpak placement Should this be performed at the bedside?-> YesFINAL REPORT AP abdomen, two images HISTORY: Feeding tube COMPARISON: None IMPRESSION:Feeding tube present. Tip projects near distal stomach, not transpyloric. Bowel gas pattern grossly nonobstructive. Intact skeleton. Signed: Elba rFeedman Verified Date/Time: 05/21/2017 15:19 :19 Reading Location: [facility] Reading Room POCT-GLUCOSE [id number] 13:37:00 Test Item Value Reference Range Comments POC-GLUCOSE METER (BEAKER) 114 mg/dL 70-110 TESTED AT [facility] [address] [facility] (test wkou=7441) [facility] [address] [address], BRAIN, WITHOUT [id number] 13:12:00FINAL REPORT CT head without contrast 05/21/2017 1:10 PM CLINICAL HISTORY: Decreased alertnessR/O acute stroke TECHNIQUE: Axial noncontrast CT images through the head were obtained. This examination was performed according to our departmental dose optimization program, which includes automated exposure control, adjustment of the mA and/or kV according to patient size, and/or use of iterated reconstruction technique. COMPARISON: None available FINDINGS: There is no hemorrhage, extra-axial collection, mass, hydrocephalus, or midline shift. 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 There is generalized parenchymal volume loss. The visualized paranasal sinuses and mastoid air cells are well aerated. The skull is intact. IMPRESSION: No intracranial hemorrhage or mass effect. Chronic appearing ischemic and involutional changes. If concern for acute pathology persists, further evaluation with MRI is recommended. Signed: Ludwin Gonzalez Verified Date/Time: 05/21/2017 13:12:28 Reading Location: [facility] Radiology Reading Room [id number] 12:54:00 Test Item Value Reference Range Comments PROCALCITONIN (BEAKER) (test nwvc=5084) 0.05 ng/mL <0.05 SEPSIS RISK (ng/mL)Low: 0.05-0.50Intermediate: 0.51-2.00High: & gt;=2.01RAD, CHEST, 1 VIEW, NON [id number] 11:44:00Reason for exam:-> central line Should this be performed at the bedside?->YesFINAL REPORT Chest one view INDICATION: Central line COMPARISON: 05/21 IMPRESSION: A right jugular line extends to the right atrium. Advise retraction 3 cm. A vagal nerve stimulator and generator are again noted. No pneumothorax is seen. There are low lung volumes with right diaphragm elevation , vascular congestion, and slightly increased lung opacities which could reflectworsening atelectasis and edema. Pneumonitis or aspiration cannot be excluded in the lower lungs. The cardiomediastinal contours are stable. Signed: Alma Delia Gaona MDReport Verified Date/Time: 05/21/2017 11:44:37 Reading Location: [facility] Radiology Reading Room LACTIC ACID, ARTERIAL, WHOLE [id number] 09:23:00 Test Item Value Reference Range Comments LACTATE BLOOD ARTERIAL (2) (BEAKER) (test 1.1 mmol/L 0.5-2.2 bkow=6681) Effective 11/28/2015: Units/Reference Range ChangeNew: 0.5-2.2 mmol/L Previous: 5 -20 mg/dLBLOOD GAS, [id number] 09:16:00 Test Item Value Reference Range Comments PH ARTERIAL (BEAKER) (test xmmw=874) 7.31 7.35-7.45 PCO2 ARTERIAL (BEAKER) (test elnt=402) 50 mmHg 35-45 PO2 ARTERIAL (BEAKER) (test fiel=031) 29 mmHg 80-90 O2 SATURATION ARTERIAL (BEAKER) (test uibz=237) 49.0 % 96.0-97.0 HCO3 ARTERIAL (BEAKER) (test eiey=228) 24 mmol/L 21-29 BASE EXCESS ARTERIAL (BEAKER) (test nrfn=483) -2.5 mmol/L -2.0-3.0 PATIENT TEMPERATURE (BEAKER) (test lwel=0789) 36.8 C FIO2 (BEAKER) (test deqc=3970) 40.0 % URINALYSIS W/ [id number] 03:13:00 Test Item Value Reference Range Comments COLOR (BEAKER) (test imkq=470) Yellow CLARITY (BEAKER) (test yoec=297) Clear SPECIFIC GRAVITY UA (BEAKER) (test byej=398) 1.020 1.001-1.035 PH UA (BEAKER) (test tgqf=668) 6.0 5.0-8.0 PROTEIN UA (BEAKER) (test ysas=045) 20 mg/dL Negative GLUCOSE UA (BEAKER) (test qbal=701) Negative Negative KETONES UA (BEAKER) (test vofb=472) Negative Negative BILIRUBIN UA (BEAKER) (test fsjc=139) Negative Negative BLOOD UA (BEAKER) (test cmnl=374) Negative Negative NITRITE UA (BEAKER) (test nlwm=416) Negative Negative LEUKOCYTE ESTERASE UA (BEAKER) (test dhwl=809) Small Negative UROBILINOGEN UA (BEAKER) (test xska=122) 0.2 mg/dL 0.2-1.0 RBC UA (BEAKER) (test rszh=457) 1 /HPF WBC UA (BEAKER) (test vbjn=200) 7 /HPF BACTERIA (BEAKER) (test nsig=449) Occasional MUCUS (BEAKER) (test sadl=9171) Few SQUAMOUS EPITHELIAL (BEAKER) (test ugxe=824) 1 /HPF HYALINE CASTS (BEAKER) (test aqhv=911) 2 /LPF AMORPHOUS CRYSTALS (BEAKER) (test hwpw=9979) Rare SOURCE(BEAKER) (test vetd=3740) Urine, [place] HEPATIC FUNCTION [id number] 02:11:00 Test Item Value Reference Range Comments TOTAL PROTEIN (BEAKER) (test zzjp=881) 6.3 gm/dL 6.0-8.3 ALBUMIN (BEAKER) (test asbg=1994) 3.6 g/dL 3.5-5.0 BILIRUBIN TOTAL (BEAKER) (test zqgd=240) 0.4 mg/dL 0.2-1.2 BILIRUBIN DIRECT (BEAKER) (test glur=112) 0.2 mg/dL 0.1-0.5 ALKALINE PHOSPHATASE (BEAKER) (test pyjk=127) 157 U/L 40-150 AST (SGOT) (BEAKER) (test wwlu=450) 17 U/L 5-34 ALT (SGPT) (BEAKER) (test cuci=733) 17 U/L 6-55 BASIC METABOLIC [id number] 02:11:00 Test Item Value Reference Range Comments SODIUM (BEAKER) (test 138 meq/L 136-145 flnk=963) POTASSIUM (BEAKER) (test 4.0 meq/L 3.5-5.1 brqw=071) CHLORIDE (BEAKER) (test 110 meq/L 98-107 nvao=449) CO2 (BEAKER) (test 20 meq/L 22-29 eoig=096) BLOOD UREA NITROGEN 5 mg/dL 7-21 (BEAKER) (test vglu=842) CREATININE (BEAKER) (test 0.67 mg/dL 0.57-1.25 dhez=461) GLUCOSE RANDOM (BEAKER) 126 mg/dL 70-105 (test jmnb=110) CALCIUM (BEAKER) (test 8.3 mg/dL 8.4-10.2 pfrc=765) EGFR (BEAKER) (test 96 mL/min/1.73 sq m ESTIMATED GFR IS NOT agma=8073) ACCURATE CREATININE CLEARANCE IN PREDICTING GLOMERULAR FILTRATION RATE. ESTIMATED GFR IS NOT APPLICABLE FOR DIALYSIS PATIENTS. CBC W/PLT COUNT & AUTO [id number] 01:55:00 Test Item Value Reference Range Comments WHITE BLOOD CELL COUNT (BEAKER) (test thiv=221) 19.3 K/ L 3.5-10.5 RED BLOOD CELL COUNT (BEAKER) (test zdyt=586) 4.07 M/ L 3.93-5.22 HEMOGLOBIN (BEAKER) (test xgjj=986) 11.7 GM/DL 11.2-15.7 HEMATOCRIT (BEAKER) (test xmvi=733) 38.9 % 34.1-44.9 MEAN CORPUSCULAR VOLUME (BEAKER) (test lrmq=624) 95.6 fL 79.4-94.8 MEAN CORPUSCULAR HEMOGLOBIN (BEAKER) (test 28.7 pg 25.6-32.2 ryek=000) MEAN CORPUSCULAR HEMOGLOBIN CONC (BEAKER) (test 30.1 GM/DL 32.2-35.5 agon=078) RED CELL DISTRIBUTION WIDTH (BEAKER) (test 14.5 % 11.7-14.4 kfuh=025) PLATELET COUNT (BEAKER) (test idun=368) 299 K/CU MM 150-450 MEAN PLATELET VOLUME (BEAKER) (test viuc=083) 10.4 fL 9.4-12.3 NUCLEATED RED BLOOD CELLS (BEAKER) (test 0 /100 WBC 0-0 vgbw=444) NEUTROPHILS RELATIVE PERCENT (BEAKER) (test 91 % pkmc=834) LYMPHOCYTES RELATIVE PERCENT (BEAKER) (test 3 % isnq=223) MONOCYTES RELATIVE PERCENT (BEAKER) (test 6 % ucrm=660) EOSINOPHILS RELATIVE PERCENT (BEAKER) (test 0 % gohz=046) BASOPHILS RELATIVE PERCENT (BEAKER) (test 0 % rvhj=222) NEUTROPHILS ABSOLUTE COUNT (BEAKER) (test 17.62 K/ L 1.56-6.13 phsw=007) LYMPHOCYTES ABSOLUTE COUNT (BEAKER) (test 0.51 K/ L 1.18-3.74 fhca=879) MONOCYTES ABSOLUTE COUNT (BEAKER) (test 1.07 K/ L 0.24-0.36 vhde=298) EOSINOPHILS ABSOLUTE COUNT (BEAKER) (test 0.00 K/ L 0.04-0.36 cpow=816) BASOPHILS ABSOLUTE COUNT (BEAKER) (test 0.04 K/ L 0.01-0.08 qbom=630) IMMATURE GRANULOCYTES-RELATIVE PERCENT (BEAKER) 0 % 0-1 (test yzpm=5139) RAD, CHEST, 1 VIEW, NON [id number] 01:20:00Reason for exam:->evaluate for pneumoniaShould this be performed at the bedside?->YesFINAL REPORT Comparison exam: 12/17/2016 Right basilar atelectasis. Normal cardiomediastinal contours. Left vagal stimulator with a generator overlying the left chest wall. Normalskeleton and soft tissues. IMPRESSION: Right basilar atelectasis. Signed: Wayne Ferreira Verified Date/Time: 01:20:03 Reading Location: [address] Ortho Consult Reading Room TROPONIN [id number] 02:00:00 Test Item Value Reference Range Comments TROPONIN I (BEAKER) (test jthb=824) < ng/mL 0.00-0.03 Effective 06/13/2014: Reference Range ChangeNew: 0.00-0.03 Previous 0.00- 0.15Troponin I (TnI) levels must be interpreted in the context of the presenting symptoms and the clinical findings. Elevated TnI levels indicate myocardial damage, but are not specific for ischemic heart disease. Elevated TnI levels are seen in patients with other cardiac conditions (including myocarditis and congestive heartfailure), and slight TnI elevations occur in patients with other conditions, including sepsis, renalfailure, acidosis, acute neurological disease, and persistent tachyarrhythmia.BLOOD [id number] 06: 00:00 Test Item Value Reference Range Comments CULTURE (BEAKER) (test fjzo=2886) No growth in 5 days BLOOD [id number] 06:00:00 Test Item Value Reference Range Comments CULTURE (BEAKER) (test oagy=0791) No growth in 5 days COMPREHENSIVE METABOLIC [id number] 05:11:00 Test Item Value Reference Range Comments TOTAL PROTEIN (BEAKER) 6.3 gm/dL 6.0-8.3 (test qsjd=653) ALBUMIN (BEAKER) (test 3.4 g/dL 3.5-5.0 tsbh=8491) ALKALINE PHOSPHATASE 139 U/L 40-150 (BEAKER) (test yyvu=655) BILIRUBIN TOTAL (BEAKER) 0.3 mg/dL 0.2-1.2 (test pmfh=043) SODIUM (BEAKER) (test 137 meq/L 136-145 zhme=618) POTASSIUM (BEAKER) (test 3.8 meq/L 3.5-5.1 qezz=283) CHLORIDE (BEAKER) (test 111 meq/L 98-107 znbt=800) CO2 (BEAKER) (test 18 meq/L 22-29 cqwp=999) BLOOD UREA NITROGEN 3 mg/dL 7-21 (BEAKER) (test pzvh=804) CREATININE (BEAKER) (test 0.56 mg/dL 0.57-1.25 pddr=595) GLUCOSE RANDOM (BEAKER) 91 mg/dL 70-105 (test hehc=374) CALCIUM (BEAKER) (test 8.8 mg/dL 8.4-10.2 attn=087) AST (SGOT) (BEAKER) (test 32 U/L 5-34 ifyd=028) ALT (SGPT) (BEAKER) (test 33 U/L 6-55 kjib=228) EGFR (BEAKER) (test 118 mL/min/1.73 sq ESTIMATED GFR IS NOT msed=2482) m ACCURATE CREATININE CLEARANCE IN PREDICTING GLOMERULAR FILTRATION RATE. ESTIMATED GFR IS NOT APPLICABLE FOR DIALYSIS PATIENTS. CBC W/PLT COUNT & AUTO [id number] 04:52:00 Test Item Value Reference Range Comments WHITE BLOOD CELL COUNT (BEAKER) (test gdrv=503) 9.4 K/ L 4.0-10.0 RED BLOOD CELL COUNT (BEAKER) (test bxnj=355) 4.05 M/ L 4.00-5.00 HEMOGLOBIN (BEAKER) (test ayzb=031) 12.9 GM/DL 12.0-15.0 HEMATOCRIT (BEAKER) (test srff=455) 39.9 % 36.0-45.0 MEAN CORPUSCULAR VOLUME (BEAKER) (test efqy=151) 98.4 fL 82.0-99.0 MEAN CORPUSCULAR HEMOGLOBIN (BEAKER) (test 31.9 pg 27.0-33.0 ibne=840) MEAN CORPUSCULAR HEMOGLOBIN CONC (BEAKER) (test 32.4 GM/DL 32.0-36.0 cghe=222) RED CELL DISTRIBUTION WIDTH (BEAKER) (test 11.6 % 10.3-14.2 ocrp=772) PLATELET COUNT (BEAKER) (test aapl=609) 375 K/CU MM 150-430 MEAN PLATELET VOLUME (BEAKER) (test tflo=127) 6.8 fL 6.5-10.5 NUCLEATED RED BLOOD CELLS (BEAKER) (test 0 /100 WBC 0-0 pguq=677) NEUTROPHILS RELATIVE PERCENT (BEAKER) (test 65 % cxeb=242) LYMPHOCYTES RELATIVE PERCENT (BEAKER) (test 25 % ucoy=402) MONOCYTES RELATIVE PERCENT (BEAKER) (test 7 % zwrp=267) EOSINOPHILS RELATIVE PERCENT (BEAKER) (test 2 % ghhr=980) BASOPHILS RELATIVE PERCENT (BEAKER) (test 0 % lljv=756) NEUTROPHILS ABSOLUTE COUNT (BEAKER) (test 6.11 K/ L 1.80-8.00 kaia=027) LYMPHOCYTES ABSOLUTE COUNT (BEAKER) (test 2.35 K/ L 1.48-4.50 esag=211) MONOCYTES ABSOLUTE COUNT (BEAKER) (test 0.68 K/ L 0.00-1.30 uwpg=277) EOSINOPHILS ABSOLUTE COUNT (BEAKER) (test 0.23 K/ L 0.00-0.50 uzjf=770) BASOPHILS ABSOLUTE COUNT (BEAKER) (test 0.03 K/ L 0.00-0.20 jqpf=520) [id number] 06:34:00 Test Item Value Reference Range Comments CORTISOL, TOTAL (BEAKER) (test zsbe=0718) 4.4 ug/dL 3.7-19.4 COMPREHENSIVE METABOLIC [id number] 06:17:00 Test Item Value Reference Range Comments TOTAL PROTEIN (BEAKER) 6.3 gm/dL 6.0-8.3 (test zhiq=977) ALBUMIN (BEAKER) (test 3.4 g/dL 3.5-5.0 rqhv=0227) ALKALINE PHOSPHATASE 133 U/L 40-150 (BEAKER) (test cldf=967) BILIRUBIN TOTAL (BEAKER) 0.3 mg/dL 0.2-1.2 (test utuc=177) SODIUM (BEAKER) (test 141 meq/L 136-145 auiw=769) POTASSIUM (BEAKER) (test 3.7 meq/L 3.5-5.1 faym=112) CHLORIDE (BEAKER) (test 112 meq/L 98-107 kkvo=718) CO2 (BEAKER) (test 21 meq/L 22-29 clcs=036) BLOOD UREA NITROGEN 2 mg/dL 7-21 (BEAKER) (test ubkv=838) CREATININE (BEAKER) (test 0.55 mg/dL 0.57-1.25 fxsu=567) GLUCOSE RANDOM (BEAKER) 90 mg/dL 70-105 (test lkpc=787) CALCIUM (BEAKER) (test 8.5 mg/dL 8.4-10.2 oyjp=393) AST (SGOT) (BEAKER) (test 30 U/L 5-34 aqcb=319) ALT (SGPT) (BEAKER) (test 21 U/L 6-55 hajo=813) EGFR (BEAKER) (test 120 mL/min/1.73 sq ESTIMATED GFR IS NOT xfep=8142) m ACCURATE CREATININE CLEARANCE IN PREDICTING GLOMERULAR FILTRATION RATE. ESTIMATED GFR IS NOT APPLICABLE FOR DIALYSIS PATIENTS. CBC W/PLT COUNT & AUTO [id number] 06:07:00 Test Item Value Reference Range Comments WHITE BLOOD CELL COUNT (BEAKER) (test tozt=021) 8.3 K/ L 4.0-10.0 RED BLOOD CELL COUNT (BEAKER) (test oxkg=888) 3.95 M/ L 4.00-5.00 HEMOGLOBIN (BEAKER) (test ljoe=044) 12.3 GM/DL 12.0-15.0 HEMATOCRIT (BEAKER) (test vtkj=603) 38.7 % 36.0-45.0 MEAN CORPUSCULAR VOLUME (BEAKER) (test oxlf=239) 98.2 fL 82.0-99.0 MEAN CORPUSCULAR HEMOGLOBIN (BEAKER) (test 31.2 pg 27.0-33.0 noxy=417) MEAN CORPUSCULAR HEMOGLOBIN CONC (BEAKER) (test 31.8 GM/DL 32.0-36.0 rltt=154) RED CELL DISTRIBUTION WIDTH (BEAKER) (test 12.9 % 10.3-14.2 fkdr=041) PLATELET COUNT (BEAKER) (test yklb=779) 343 K/CU MM 150-430 MEAN PLATELET VOLUME (BEAKER) (test uxbx=980) 7.3 fL 6.5-10.5 NUCLEATED RED BLOOD CELLS (BEAKER) (test 0 /100 WBC 0-0 fcfu=202) NEUTROPHILS RELATIVE PERCENT (BEAKER) (test 60 % gfzy=390) LYMPHOCYTES RELATIVE PERCENT (BEAKER) (test 27 % qltx=014) MONOCYTES RELATIVE PERCENT (BEAKER) (test 8 % xkce=545) EOSINOPHILS RELATIVE PERCENT (BEAKER) (test 5 % irbv=678) BASOPHILS RELATIVE PERCENT (BEAKER) (test 1 % pqib=461) NEUTROPHILS ABSOLUTE COUNT (BEAKER) (test 4.91 K/ L 1.80-8.00 bzqm=973) LYMPHOCYTES ABSOLUTE COUNT (BEAKER) (test 2.25 K/ L 1.48-4.50 ukqz=451) MONOCYTES ABSOLUTE COUNT (BEAKER) (test 0.63 K/ L 0.00-1.30 fidz=565) EOSINOPHILS ABSOLUTE COUNT (BEAKER) (test 0.40 K/ L 0.00-0.50 llav=769) BASOPHILS ABSOLUTE COUNT (BEAKER) (test 0.05 K/ L 0.00-0.20 hlct=346) 0.00PREGNANCY SCREEN, [id number] 17:45:00 Test Item Value Reference Range Comments TEST URINE (BEAKER) (test svzq=280) Negative [id number] 15:15:00 Test Item Value Reference Range Comments MAGNESIUM (BEAKER) (test ohtm=061) 1.7 mg/dL 1.6-2.6 SPUTUM CULTURE + GRAM [id number] 12:52:00 Test Item Value Reference Range Comments CULTURE (BEAKER) (test STAPHYLOCOCCUS AUREUS <1+ Staphylococcus rhhe=6217) aureus Ampicillin (test code=26) Ciprofloxacin (test code=7) Clindamycin (test code=10) Daptomycin (test code=59) Erythromycin (test code=4) Gentamicin (test code=18) Gentamicin High Level Synergy (test ujum=708) Levofloxacin (test code=22) Linezolid (test code=40) Moxifloxacin (test code=36) Nitrofurantoin (test code=23) Oxacillin (test code=14) Rifampin (test code=43) Streptomycin High Level Synergy (test hxyn=606) Tetracycline (test code=2) Tigecycline (test tjkt=140) Trimethoprim + Sulfamethoxazole (test code=47) Vancomycin (test code=13) GRAM STAIN RESULT 3+ White blood cells (BEAKER) (test qvtk=1883) seen GRAM STAIN RESULT 0-5 epithelial cells (BEAKER) (test bofu=[id number]) GRAM STAIN RESULT No organisms seen (BEAKER) (test tfoj=366861) <1+ Normal respiratory sarah [id number] 08:45:00 Test Item Value Reference Range Comments LIPASE (BEAKER) (test xyfx=582) 14 U/L 8-78 COMPREHENSIVE METABOLIC [id number] 04:58:00 Test Item Value Reference Range Comments TOTAL PROTEIN (BEAKER) 5.3 gm/dL 6.0-8.3 (test vlum=875) ALBUMIN (BEAKER) (test 2.8 g/dL 3.5-5.0 hkna=9467) ALKALINE PHOSPHATASE 115 U/L 40-150 (BEAKER) (test toyh=153) BILIRUBIN TOTAL (BEAKER) 0.3 mg/dL 0.2-1.2 (test hmeg=693) SODIUM (BEAKER) (test 141 meq/L 136-145 iosy=601) POTASSIUM (BEAKER) (test 3.4 meq/L 3.5-5.1 huff=142) CHLORIDE (BEAKER) (test 112 meq/L 98-107 mrep=071) CO2 (BEAKER) (test 23 meq/L 22-29 qpdf=281) BLOOD UREA NITROGEN 3 mg/dL 7-21 (BEAKER) (test wkxu=182) CREATININE (BEAKER) (test 0.58 mg/dL 0.57-1.25 rdzo=635) GLUCOSE RANDOM (BEAKER) 83 mg/dL 70-105 (test avhq=000) CALCIUM (BEAKER) (test 7.8 mg/dL 8.4-10.2 yten=053) AST (SGOT) (BEAKER) (test 28 U/L 5-34 ufpr=698) ALT (SGPT) (BEAKER) (test 17 U/L 6-55 wylu=130) EGFR (BEAKER) (test 113 mL/min/1.73 sq ESTIMATED GFR IS NOT ygsw=7402) m ACCURATE CREATININE CLEARANCE IN PREDICTING GLOMERULAR FILTRATION RATE. ESTIMATED GFR IS NOT APPLICABLE FOR DIALYSIS PATIENTS. CBC W/PLT COUNT & AUTO [id number] 04:46:00 Test Item Value Reference Range Comments WHITE BLOOD CELL COUNT (BEAKER) (test lbdb=568) 8.7 K/ L 4.0-10.0 RED BLOOD CELL COUNT (BEAKER) (test fcsv=042) 3.31 M/ L 4.00-5.00 HEMOGLOBIN (BEAKER) (test sfqy=514) 10.8 GM/DL 12.0-15.0 HEMATOCRIT (BEAKER) (test ogfr=240) 32.9 % 36.0-45.0 MEAN CORPUSCULAR VOLUME (BEAKER) (test usjn=695) 99.4 fL 82.0-99.0 MEAN CORPUSCULAR HEMOGLOBIN (BEAKER) (test 32.5 pg 27.0-33.0 ytiu=345) MEAN CORPUSCULAR HEMOGLOBIN CONC (BEAKER) (test 32.7 GM/DL 32.0-36.0 syhq=811) RED CELL DISTRIBUTION WIDTH (BEAKER) (test 11.4 % 10.3-14.2 knqa=155) PLATELET COUNT (BEAKER) (test eqxk=250) 284 K/CU MM 150-430 MEAN PLATELET VOLUME (BEAKER) (test yfpa=948) 6.8 fL 6.5-10.5 NUCLEATED RED BLOOD CELLS (BEAKER) (test 0 /100 WBC 0-0 dswh=156) NEUTROPHILS RELATIVE PERCENT (BEAKER) (test 60 % ugwt=262) LYMPHOCYTES RELATIVE PERCENT (BEAKER) (test 24 % lius=255) MONOCYTES RELATIVE PERCENT (BEAKER) (test 9 % fxtx=544) EOSINOPHILS RELATIVE PERCENT (BEAKER) (test 6 % rlvi=246) BASOPHILS RELATIVE PERCENT (BEAKER) (test 1 % zakx=341) NEUTROPHILS ABSOLUTE COUNT (BEAKER) (test 5.22 K/ L 1.80-8.00 lglj=267) LYMPHOCYTES ABSOLUTE COUNT (BEAKER) (test 2.11 K/ L 1.48-4.50 qnot=421) MONOCYTES ABSOLUTE COUNT (BEAKER) (test 0.76 K/ L 0.00-1.30 fazw=562) EOSINOPHILS ABSOLUTE COUNT (BEAKER) (test 0.54 K/ L 0.00-0.50 gjbf=359) BASOPHILS ABSOLUTE COUNT (BEAKER) (test 0.04 K/ L 0.00-0.20 flef=491) 0.00BLOOD GAS, [id number] 05:22:00 Test Item Value Reference Range Comments PH ARTERIAL (BEAKER) (test wsjd=989) 7.38 7.35-7.45 PCO2 ARTERIAL (BEAKER) (test wayx=715) 41 mm Hg 35-45 PO2 ARTERIAL (BEAKER) (test atpq=530) 90 mm Hg 80-90 O2 SATURATION ARTERIAL (BEAKER) (test cudb=372) 96.7 % 96.0-97.0 HCO3 ARTERIAL (BEAKER) (test zckw=831) 24 mmol/L 21-29 BASE EXCESS ARTERIAL (BEAKER) (test kppb=698) -1.5 mmol/L -2.0-3.0 PATIENT TEMPERATURE (BEAKER) (test fjxs=0608) 37.0 FIO2 (BEAKER) (test atqp=8514) 30 COMPREHENSIVE METABOLIC [id number] 04:50:00 Test Item Value Reference Range Comments TOTAL PROTEIN (BEAKER) 5.3 gm/dL 6.0-8.3 (test vqmv=694) ALBUMIN (BEAKER) (test 2.8 g/dL 3.5-5.0 djgq=9951) ALKALINE PHOSPHATASE 123 U/L 40-150 (BEAKER) (test syfx=458) BILIRUBIN TOTAL (BEAKER) 0.3 mg/dL 0.2-1.2 (test jndz=045) SODIUM (BEAKER) (test 138 meq/L 136-145 shoh=539) POTASSIUM (BEAKER) (test 3.4 meq/L 3.5-5.1 mtde=555) CHLORIDE (BEAKER) (test 110 meq/L 98-107 eyuw=840) CO2 (BEAKER) (test 22 meq/L 22-29 fsqh=948) BLOOD UREA NITROGEN 3 mg/dL 7-21 (BEAKER) (test supr=817) CREATININE (BEAKER) (test 0.55 mg/dL 0.57-1.25 jxlt=647) GLUCOSE RANDOM (BEAKER) 97 mg/dL 70-105 (test pgbs=512) CALCIUM (BEAKER) (test 7.8 mg/dL 8.4-10.2 azhw=300) AST (SGOT) (BEAKER) (test 38 U/L 5-34 meve=263) ALT (SGPT) (BEAKER) (test 17 U/L 6-55 dfof=349) EGFR (BEAKER) (test 120 mL/min/1.73 sq ESTIMATED GFR IS NOT ozru=2912) m ACCURATE CREATININE CLEARANCE IN PREDICTING GLOMERULAR FILTRATION RATE. ESTIMATED GFR IS NOT APPLICABLE FOR DIALYSIS PATIENTS. CBC W/PLT COUNT & AUTO [id number] 04:32:00 Test Item Value Reference Range Comments WHITE BLOOD CELL COUNT (BEAKER) (test wtjz=577) 11.8 K/ L 4.0-10.0 RED BLOOD CELL COUNT (BEAKER) (test fbkd=337) 3.45 M/ L 4.00-5.00 HEMOGLOBIN (BEAKER) (test cmvz=256) 10.8 GM/DL 12.0-15.0 HEMATOCRIT (BEAKER) (test kdzf=314) 34.1 % 36.0-45.0 MEAN CORPUSCULAR VOLUME (BEAKER) (test uhhb=598) 98.8 fL 82.0-99.0 MEAN CORPUSCULAR HEMOGLOBIN (BEAKER) (test 31.3 pg 27.0-33.0 eahx=809) MEAN CORPUSCULAR HEMOGLOBIN CONC (BEAKER) (test 31.7 GM/DL 32.0-36.0 xdsz=325) RED CELL DISTRIBUTION WIDTH (BEAKER) (test 12.8 % 10.3-14.2 mpks=210) PLATELET COUNT (BEAKER) (test zzod=979) 271 K/CU MM 150-430 MEAN PLATELET VOLUME (BEAKER) (test ueaa=188) 7.1 fL 6.5-10.5 NUCLEATED RED BLOOD CELLS (BEAKER) (test 0 /100 WBC 0-0 retg=953) NEUTROPHILS RELATIVE PERCENT (BEAKER) (test 81 % hzva=626) LYMPHOCYTES RELATIVE PERCENT (BEAKER) (test 11 % zwap=690) MONOCYTES RELATIVE PERCENT (BEAKER) (test 5 % mqsu=546) EOSINOPHILS RELATIVE PERCENT (BEAKER) (test 2 % ommq=782) BASOPHILS RELATIVE PERCENT (BEAKER) (test 0 % xtrd=717) NEUTROPHILS ABSOLUTE COUNT (BEAKER) (test 9.61 K/ L 1.80-8.00 xdid=386) LYMPHOCYTES ABSOLUTE COUNT (BEAKER) (test 1.29 K/ L 1.48-4.50 rgbi=728) MONOCYTES ABSOLUTE COUNT (BEAKER) (test 0.63 K/ L 0.00-1.30 ylix=257) EOSINOPHILS ABSOLUTE COUNT (BEAKER) (test 0.24 K/ L 0.00-0.50 uhcn=485) BASOPHILS ABSOLUTE COUNT (BEAKER) (test 0.06 K/ L 0.00-0.20 bdgk=166) 0.00BASIC METABOLIC [id number] 12:18:00 Test Item Value Reference Range Comments SODIUM (BEAKER) (test 140 meq/L 136-145 vrmg=208) POTASSIUM (BEAKER) (test 3.4 meq/L 3.5-5.1 uuyr=170) CHLORIDE (BEAKER) (test 115 meq/L 98-107 manj=208) CO2 (BEAKER) (test 20 meq/L 22-29 plqb=921) BLOOD UREA NITROGEN 4 mg/dL 7-21 (BEAKER) (test gkqb=558) CREATININE (BEAKER) (test 0.72 mg/dL 0.57-1.25 zhdd=068) GLUCOSE RANDOM (BEAKER) 107 mg/dL 70-105 (test zuyx=638) CALCIUM (BEAKER) (test 7.3 mg/dL 8.4-10.2 odiv=705) EGFR (BEAKER) (test 88 mL/min/1.73 sq m ESTIMATED GFR IS NOT gmhs=6757) ACCURATE CREATININE CLEARANCE IN PREDICTING GLOMERULAR FILTRATION RATE. ESTIMATED GFR IS NOT APPLICABLE FOR DIALYSIS PATIENTS. BLOOD GAS, [id number] 12:03:00 Test Item Value Reference Range Comments PH VENOUS (BEAKER) (test lulr=025) 7.35 7.32-7.42 PCO2 VENOUS (BEAKER) (test toyp=181) 39 mmHg 41-51 PO2 VENOUS (BEAKER) (test arpf=642) 41 mmHg 25-40 O2 SATURATION VENOUS (BEAKER) (test gues=760) 73.0 % 40.0-70.0 HCO3 VENOUS (BEAKER) (test clxr=006) 21 mmol/L 21-29 BASE EXCESS VENOUS (BEAKER) (test shtk=355) -4.0 mmol/L -2.0-3.0 PATIENT TEMPERATURE (BEAKER) (test jcbq=4745) 37.6 C FIO2 (BEAKER) (test jbyp=4671) 30.0 % BLOOD GAS, [id number] 05:17:00 Test Item Value Reference Range Comments PH ARTERIAL (BEAKER) (test qvqt=549) 7.46 7.35-7.45 PCO2 ARTERIAL (BEAKER) (test bozv=863) 24 mmHg 35-45 PO2 ARTERIAL (BEAKER) (test bgdo=016) 193 mmHg 80-90 O2 SATURATION ARTERIAL (BEAKER) (test rsrd=069) 99.4 % 96.0-97.0 HCO3 ARTERIAL (BEAKER) (test boqf=791) 17 mmol/L 21-29 BASE EXCESS ARTERIAL (BEAKER) (test ajao=698) -5.6 mmol/L -2.0-3.0 PATIENT TEMPERATURE (BEAKER) (test mbmn=5307) 36.6 C FIO2 (BEAKER) (test flpg=7270) 50.0 % ACETAMINOPHEN [id number] 01:27:00 Test Item Value Reference Range Comments ACETAMINOPHEN LEVEL (BEAKER) (test zpoa=294) < ug/mL 10.0-30.0 SCAN RESULT (test gesy=5811045) no SALICYLATE [id number] 01:26:00 Test Item Value Reference Range Comments SALICYLATE LEVEL (BEAKER) (test ddwl=657) < mg/dL 20.0-30.0 SCAN RESULT (test fhmq=5802032) no POCT-GLUCOSE [id number] 00:40:00 Test Item Value Reference Range Comments POC-GLUCOSE METER (BEAKER) 139 mg/dL 70-110 TESTED AT [facility] [address] [facility] (test vkxv=1769) [facility] [address] LACTIC ACID, ARTERIAL, WHOLE [id number] 00:02:00 Test Item Value Reference Range Comments LACTATE BLOOD ARTERIAL (2) (BEAKER) (test 1.3 mmol/L 0.5-2.2 osmb=4433) Effective 11/28/2015: Units/Reference Range ChangeNew: 0.5-2.2 mmol/L Previous: 5 -20 mg/dLBLOOD GAS, [id number] 23:51:00 Test Item Value Reference Range Comments PH ARTERIAL (BEAKER) (test myju=639) 7.25 7.35-7.45 PCO2 ARTERIAL (BEAKER) (test muid=994) 40 mmHg 35-45 PO2 ARTERIAL (BEAKER) (test vfct=529) 242 mmHg 80-90 O2 SATURATION ARTERIAL (BEAKER) (test zvbm=484) 99.4 % 96.0-97.0 HCO3 ARTERIAL (BEAKER) (test zyfx=884) 17 mmol/L 21-29 BASE EXCESS ARTERIAL (BEAKER) (test fgpa=787) -9.3 mmol/L -2.0-3.0 PATIENT TEMPERATURE (BEAKER) (test ozxi=2268) 36.4 C FIO2 (BEAKER) (test ycmn=7601) 80.0 % BASIC METABOLIC [id number] 23:38:00 Test Item Value Reference Range Comments SODIUM (BEAKER) (test 141 meq/L 136-145 zfmg=405) POTASSIUM (BEAKER) (test 3.9 meq/L 3.5-5.1 zihb=692) CHLORIDE (BEAKER) (test 116 meq/L 98-107 zcld=666) CO2 (BEAKER) (test 18 meq/L 22-29 mtys=751) BLOOD UREA NITROGEN 5 mg/dL 7-21 (BEAKER) (test fhoc=051) CREATININE (BEAKER) (test 0.75 mg/dL 0.57-1.25 zszf=679) GLUCOSE RANDOM (BEAKER) 155 mg/dL 70-105 (test ffea=072) CALCIUM (BEAKER) (test 7.3 mg/dL 8.4-10.2 jxbp=312) EGFR (BEAKER) (test 84 mL/min/1.73 sq m ESTIMATED GFR IS NOT erjp=2382) ACCURATE CREATININE CLEARANCE IN PREDICTING GLOMERULAR FILTRATION RATE. ESTIMATED GFR IS NOT APPLICABLE FOR DIALYSIS PATIENTS. HEPATIC FUNCTION [id number] 23:26:00 Test Item Value Reference Range Comments TOTAL PROTEIN (BEAKER) (test qiuc=102) 5.7 gm/dL 6.0-8.3 ALBUMIN (BEAKER) (test qnjk=6404) 3.1 g/dL 3.5-5.0 BILIRUBIN TOTAL (BEAKER) (test vgle=830) 0.5 mg/dL 0.2-1.2 BILIRUBIN DIRECT (BEAKER) (test figt=526) 0.2 mg/dL 0.1-0.5 ALKALINE PHOSPHATASE (BEAKER) (test xmxv=471) 134 U/L 40-150 AST (SGOT) (BEAKER) (test nhxc=133) 18 U/L 5-34 ALT (SGPT) (BEAKER) (test gvxp=759) 14 U/L 6-55 CBC W/PLT COUNT & AUTO [id number] 23:17:00 Test Item Value Reference Range Comments WHITE BLOOD CELL COUNT (BEAKER) (test fhup=988) 15.9 K/ L 4.0-10.0 RED BLOOD CELL COUNT (BEAKER) (test xiwn=960) 3.68 M/ L 4.00-5.00 HEMOGLOBIN (BEAKER) (test fcmf=474) 12.3 GM/DL 12.0-15.0 HEMATOCRIT (BEAKER) (test cbaj=990) 36.9 % 36.0-45.0 MEAN CORPUSCULAR VOLUME (BEAKER) (test nopt=681) 100.0 fL 82.0-99.0 MEAN CORPUSCULAR HEMOGLOBIN (BEAKER) (test 33.5 pg 27.0-33.0 boza=432) MEAN CORPUSCULAR HEMOGLOBIN CONC (BEAKER) (test 33.3 GM/DL 32.0-36.0 anpa=315) RED CELL DISTRIBUTION WIDTH (BEAKER) (test 11.4 % 10.3-14.2 ovbz=510) PLATELET COUNT (BEAKER) (test zewh=957) 268 K/CU MM 150-430 MEAN PLATELET VOLUME (BEAKER) (test irlv=758) 7.1 fL 6.5-10.5 NUCLEATED RED BLOOD CELLS (BEAKER) (test 0 /100 WBC 0-0 uzuj=902) NEUTROPHILS RELATIVE PERCENT (BEAKER) (test 87 % eyno=876) LYMPHOCYTES RELATIVE PERCENT (BEAKER) (test 7 % vsif=996) MONOCYTES RELATIVE PERCENT (BEAKER) (test 5 % rplf=119) EOSINOPHILS RELATIVE PERCENT (BEAKER) (test 1 % whis=966) BASOPHILS RELATIVE PERCENT (BEAKER) (test 0 % vfiy=411) NEUTROPHILS ABSOLUTE COUNT (BEAKER) (test 13.70 K/ L 1.80-8.00 afan=974) LYMPHOCYTES ABSOLUTE COUNT (BEAKER) (test 1.16 K/ L 1.48-4.50 acdp=947) MONOCYTES ABSOLUTE COUNT (BEAKER) (test 0.81 K/ L 0.00-1.30 vvwm=578) EOSINOPHILS ABSOLUTE COUNT (BEAKER) (test 0.12 K/ L 0.00-0.50 qita=964) BASOPHILS ABSOLUTE COUNT (BEAKER) (test 0.07 K/ L 0.00-0.20 kmqt=093) 0.00
--- OUTSIDE RECORDS SUMMARY | 2018-09-07 18:07 | XMS REPORT | Summary of Care ---
:1970 Author Name HERO MCKENZIE M.D. Address Unavailable Unavailable , Care Team Providers Name Role Phone ROYA Andrews, KUN Unavailable Unavailable ALEJANDRA Andrews, EDELMIRA Unavailable Unavailable JONAH Andrews, HERO Unavailable Unavailable Burton CALABRESE, [place] Unavailable Unavailable JONAH [place]E [place], HERO Unavailable Unavailable FLO [place]E [place], PREETI Unavailable Unavailable Unavailable Unavailable Unavailable Functional Status Name Dates Details Functional status health issues are not documented Status: Name Dates Details Cognitive status health issues are not documented Status: Problems Name Dates Details Extrapyramidal disorder (333.90, G25.9) Status: Active 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, 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 Quantity: 60 Refills: 0 NIX EDELMIRA Andrews Start : 08-Feb-2009 Active CPAP Continuous Positive Airway Pressure Perez LT Mask with nasal pillows to fit Quantity: 1 Refills: 1 KUN PRYOR M.D. Start : 12-Sep-2009 Active Onfi 20 MG Oral Tablet Take 2 tabs PO BID. Quantity: 120 Refills: 0 NIX BRIDGET AndrewsBY Start : 27-Feb-2016 Active Zonegran 100 MG Oral Capsule Refills: 0 Active Escitalopram Oxalate 20 MG Oral Tablet TAKE 1 AND 1/2 TABLETS DAILY. Quantity: 135 Refills: 3 JONAH Andrews HERO Start : 08-Sep-2017 Active LamoTRIgine 100 MG Oral Tablet TAKE 1 TABLET BY MOUTH TWICE DAILY Quantity: 180 Refills: 3 JONAH AndrewsBRANDONHERO Start : 08-Sep-2017 Active RisperiDONE 0.25 MG Oral Tablet take 0.25 mg at bedtime and 0.25 mg prn agitation q 8 hrs . Max dose 3 tab / day MDD:0.75 Quantity: 90 Refills: 1 HERO MCKENZIE M.D. Start : 20-Aug-2018 Active Allergies and Adverse Reactions Name Dates Details Amoxicillin TABS (Allergy) Status: Active Dilantin CAPS (Allergy) Status: Active Temazepam CAPS (Allergy) Onset: 18-Feb-2013 Reaction: Hives Status: Active Past Medical History Name Dates Details History of anxiety (V11.8, Z86.59) Status: Resolved History of Right handed Status: Resolved History of seizure (V12.49, Z87.898) Status: Resolved Procedures Procedure Dates Details History of Cholecystectomy Completed History of Vagus nerve stimulation Completed Immunization Name Dates Details Immunizations not documented Family History Name Dates Details Family history of epilepsy (V17.2, Z82.0) Comments: Family History Status: Active Family history of cerebrovascular accident (CVA) (V17.1, Z82.3) Comments: Family History Status: Active Family history of Weakness (780.79, R53.1) Comments: Family History Status: Active Name Dates Details Family history of hypertension (V17.49, Z82.49) Status: Active Family history of arthritis (V17.7, Z82.61) Status: Active Social History Name Dates Details - Status: Name Dates Details Never smoker Vital Signs Date Test Result Details No Known Vitals to report Results Date Description Value Details Results not documented Plan of Care Name Dates Details Planned Observations Planned Goals not documented Planned Encounters Appointment; HERO MCKENZIE M.D. On: 20-Sep-2018 15:30 Interventions Provided Medication ChangesRisperiDONE 0.25 MG Oral Tablet - StartPlanDiscussed diagnosis , differential diagnosis, co morbidities, bio psychosocial factors, predisposing ,precipitating and maintaining symptoms Risperidone 0.25 mg qhs and 0.25 mg prn # 90Lexapro 30Lamotrigine 100mg bidDX xanax. Instructions Name Dates Details Instructions not documented Encounters Appointment; EDELMIRA ROBERTS M.D. On: 29-Sep-2016 11:30 Encounter Diagnosis: Problem not documented Appointment; EDELMIRA ROBERTS M.D. On: 03-Nov-2016 14:30 Encounter Diagnosis: Problem not documented Appointment; HERO MCKENZIE M.D. On: 04-May-2017 14:00 Encounter Diagnosis: Problem not documented Appointment; HERO MCKENZIE M.D. On: 29-May-2017 14:00 Encounter Diagnosis: Problem not documented Appointment; HERO MCKENZIE M.D. On: 15-Jun-2017 14:00 Encounter Diagnosis: Problem not documented Appointment; HERO MCKENZIE M.D. On: 29-Jun-2017 14:00 Encounter Diagnosis: Problem not documented Appointment; HERO MCKENZIE M.D. On: 31-Jul-2017 14:00 Encounter Diagnosis: Problem not documented Appointment; HERO MCKENZIE M.D. On: 08-Sep-2017 14:30 Encounter Diagnosis: Problem not documented Appointment; HERO MCKENZIE M.D. On: 08-Oct-2017 14:00 Encounter Diagnosis: Problem not documented Appointment; HERO MCKENZIE M.D. On: 05-Nov-2017 14:00 Encounter Diagnosis: Problem not documented Appointment; HERO MCKENZIE M.D. On: 30-Nov-2017 15:30 Encounter Diagnosis: Problem not documented Appointment; HERO MCKENZIE M.D. On: 24-Dec-2017 15:00 Encounter Diagnosis: Problem not documented Appointment; HERO MCKENZIE M.D. On: 08-Feb-2018 15:30 Encounter Diagnosis: Problem not documented Appointment; HERO MCKENZIE M.D. On: 08-Mar-2018 13:30 Encounter Diagnosis: Problem not documented Appointment; HERO MCKENZIE M.D. On: 09-Apr-2018 14:30 Encounter Diagnosis: Problem not documented Appointment; PARISH ALBERT M.D. On: 27-Apr-2018 13:30 Encounter Diagnosis: Problem not documented Appointment; HERO MCKENZIE M.D. On: 16-Jun-2018 9:30 Encounter Diagnosis: Problem not documented Appointment; HERO MCKENZIE M.D. On: 20-Aug-2018 13:30 Encounter Diagnosis: Problem not documented
--- NOTE | 2018-09-07 18:57 | RAD REPORT ---
EXAM DESCRIPTION: RAD - Foot Right 3 View - 09/07/2018 6:49 pm CLINICAL HISTORY: Nontraumatic right foot pain COMPARISON: None. FINDINGS: No fracture, dislocation or periosteal reaction. No acute or destructive bone process. The re is remodeling of the fifth metatarsal from remote fracture. No plantar or Achilles spur. No air or foreign body in the soft tissues. IMPRESSION: Negative right foot examination.
--- NOTE | 2018-09-07 21:07 | ER ---
Nurse's Notes [facility] Name: Lisbeth Vizcaino Age: 47 yrs Sex: Female : 1970 Arrival Date: 09/07/2018 Time: 18:03 Bed 9 Private MD: Unknown, Unknown Diagnosis: Pressure ulcer of other site, stage 1 Presentation: 09/07 18:10 Presenting complaint: RIGHT foot pain x 4-5 days. Denies injury. Transition of care: hb patient was not received from another setting of care. Onset of symptoms was September 03, 2018. Risk Assessment: Do you want to hurt yourself or someone else? Patient reports no desire to harm self or others. Care prior to arrival: None. 18:10 Method Of Arrival: Ambulatory hb 18:10 Acuity: KEVIN 4 hb 21:11 Initial Sepsis Screen: Does the patient meet any 2 criteria?. 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 - Social history:: Smoking status: Patient/guardian denies using tobacco. - Ebola Screening: : No symptoms or risks identified at this time. Screenin:29 Abuse screen: Denies threats or abuse. Denies injuries from another. Nutritional aj screening: No deficits noted. Tuberculosis screening: No symptoms or risk factors identified. Fall Risk None identified. Assessment: 20:29 General: Appears in no apparent distress. comfortable, Behavior is calm, cooperative, aj appropriate for age. Pain: Complains of pain in right foot. Neuro: Level of Consciousness is awake, alert, obeys commands, Oriented to person, place, time, situation, Appropriate for age. Respiratory: Airway is patent Respiratory effort is even, unlabored, Respiratory pattern is regular, symmetrical. Derm: Skin is intact, is healthy with good turgor, Skin is pink, warm \T\ dry. normal. Musculoskeletal: Reports pain in right foot. 21:11 Reassessment: Patient appears in no apparent distress at this time. No changes from aj previously documented assessment. Patient and/or family updated on plan of care and expected duration. Pain level reassessed. Patient is alert, oriented x 3, equal unlabored respirations, skin warm/dry/pink. Vital Signs: 18:09 BP 129 / 91; Pulse 83; Resp 16; Temp 98.1; Pulse Ox 100% on R/A; Pain 8/10; hb ED Course: 18:03 Patient arrived in ED. sb2 18:04 Unknown, Unknown is Private Physician. sb2 18:10 Triage completed. hb 18:10 Arm band placed on. hb 18:50 Foot Right 3 View XRAY In Process Unspecified. EDMS 19:25 Nata Nath, RN is Primary Nurse. aj 19:29 Rayo Buckner MD is Attending Physician. gs 20:29 Patient has correct armband on for positive identification. aj 20:29 Initial lab(s) drawn, by me, sent to lab. aj 20:30 D-Dimer Sent. aj 21:03 Onofre Erickson DPM is Referral Physician. gs 21:11 No provider procedures requiring assistance completed. Patient did not have IV access aj during this emergency room visit. Taz wrap to right ankle. Administered Medications: No medications were administered Outcome: 21:06 Discharge ordered by . gs 21:11 Discharged to home ambulatory. aj 21:11 Condition: good 21:11 Discharge instructions given to patient, Instructed on discharge instructions, follow up and referral plans. medication usage, Demonstrated understanding of instructions, follow-up care, medications, Prescriptions given X 1. 21:12 Patient left the ED. aj Signatures: Dispatcher [employer] EDMS Nata Nath, RN Radha Lakhani RN RN Rayo Buckner MD MD CallibriannaDrissi sb2
--- NOTE | 2018-09-07 21:07 | EDPHYS ---
Physician Documentation [facility] Name: Lisbeth Vizcaino Age: 47 yrs Sex: Female : 1970 Arrival Date: 09/07/2018 Time: 18:03 Bed 9 Private MD: Unknown, Unknown ED Physician Rayo Buckner HPI: 09/07 20:59 This 47 yrs old Female presents to ER via Ambulatory with complaints of Foot gs Pain. 20:59 The patient presents with pain. The complaints affect the right foot. Onset: The gs symptoms/episode began/occurred 2 day(s) ago. Associated signs and symptoms: Pertinent positives: calf tenderness. Severity of symptoms: At their worst the symptoms were moderate, in the emergency department the symptoms are unchanged. The patient has not experienced similar symptoms in the past. 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 - Social history:: Smoking status: Patient/guardian denies using tobacco. - Ebola Screening: : No symptoms or risks identified at this time. ROS: 20:59 All other systems are negative. gs Exam: 20:59 Cardiovascular: Regular rate and rhythm with a normal S1 and S2. No gallops, murmurs, gs or rubs. Normal PMI, no JVD. No pulse deficits. Respiratory: Lungs have equal breath sounds bilaterally, clear to auscultation and percussion. No rales, rhonchi or wheezes noted. No increased work of breathing, no retractions or nasal flaring. Abdomen/GI: Soft, non-tender, with normal bowel sounds. No distension or tympany. No guarding or rebound. No evidence of tenderness throughout. Skin: Warm, dry with normal turgor. Normal color with no rashes, no lesions, and no evidence of cellulitis. 20:59 Constitutional: The patient appears alert, awake. 20:59 Musculoskeletal/extremity: Extremities: 21:01 Musculoskeletal/extremity: Extremities: noted in the right calf: tenderness, noted in gs the lateral side of right foot: small erythematous raised cathi firm not fluctuant tender, looks like chronic pressure area early pressure sore, ROM: no acute changes, Circulation is intact in all extremities. Vital Signs: 18:09 BP 129 / 91; Pulse 83; Resp 16; Temp 98.1; Pulse Ox 100% on R/A; Pain 8/10; hb MDM: 20:09 Patient medically screened. 21:01 Differential diagnosis: fracture, sprain, dvt. Data reviewed: vital signs, nurses gs notes. Data reviewed: radiologic studies. Counseling: I had a detailed discussion with the patient and/or guardian regarding: the historical points, exam findings, and any diagnostic results supporting the discharge/admit diagnosis, the need for outpatient follow up, a assembler trim. 02 20:19 Order name: D-Dimer; Complete Time: 20:59 09/07 18:09 Order name: Foot Right 3 View XRAY; Complete Time: 20:59 Administered Medications: No medications were administered Disposition: 09/07/18 21:06 Discharged to Home. Impression: Pressure ulcer of other site, stage 1. - Condition is Stable. - Discharge Instructions: Pressure Injury. - Prescriptions for Tylenol- Codeine #4 300-60 mg Oral Tablet - take 1 tablet by ORAL route every 6 hours As needed; 6 tablet. - Medication Reconciliation Form, Thank You Letter, Antibiotic Education, Prescription Opioid Use form. - Follow up: Onofre Erickson DPM; When: 2 - 3 days; Reason: Re-evaluation by your physician. Signatures: Dispatcher [employer] EDNata Maxwell RN RN aj Baxter, Heather, RN RN hb Starr, Gregory, MD MD Corrections: (The following items were deleted from the chart) 21:12 21:06 09/07/2018 21:06 Discharged to Home. Impression: Pressure ulcer of other site, aj stage 1. Condition is Stable. Forms are Medication Reconciliation Form, Thank You Letter, Antibiotic Education, Prescription Opioid Use. Follow up: Dr. Onofre Erickson; When: 2 - 3 days; Reason: Re-evaluation by your physician.
[2018-09-07 21:47] VITALS: BP 129/91; TEMP 98.1; O2SAT 100
== END 2018-09-07 21:12 | disposition home or self-care (01) ==
LOC: ER 18:02
DX: L89.891 Pressure ulcer of other site, stage 1 (principal); Z88.0 Allergy status to penicillin; Z88.8 Allergy status to other drugs, medicaments and biological substances
CPT/HCPCS: 36415; 85379; 99284